=== PATIENT | female | born 1955 | race Caucasian/White ===

== ENCOUNTER 2018-08-07 02:10 | Observation (INO) | payer MEDICARE, SELFPAY ==
[2018-08-07] VITALS (20 sets, daily range): BP systolic 88–118; BP diastolic 40–63; PULSE 50–76; RESP 10–18; TEMP 36.1–37.5; O2SAT 90–98; BMI 31.2
--- NOTE | 2018-08-07 | PATH_ITS ---
[facility] Accession Number: [id number] . 01 Material submitted: . GALLBLADDER . 02 Diagnosis: Gallbladder, Cholecystectomy: Chronic cholecystitis with cholelithiasis. Negative for dysplasia or malignancy. I/08/11/2018 . 02 Electronically signed: . Rylan Skinner MD, PhD, Pathologist NPI- [id number] . 01 Gross description: . Received in formalin labeled Miguelina Haddad, gallbladder is an 11.0 x 3.5 x 3.0 cm gallbladder. The serosa is green-blue smooth and is grossly intact. Opening reveals a single orange-brown ovoid calculus, which is 3.5 x 1.5 x 1.5 cm. The mucosa is green and velvety. The wall measures up to 0.2 cm in thickness. Channel Sales Manager sections are submitted as A1 to include cystic duct at the margin. A1 is three pieces. ([id number]) /[facility] . 02 Pathologist provided ICD-10: K80.60 . 02 CPT . 492228 Performed at: 01 [facility] [address], [place], [place] [id number] MD Dusty Lopez MD Phone: [phone] Performed at: 02 [facility] [address] [place], [place] [id number] MD Edita Castaneda MD Phone: [phone]
--- NOTE | 2018-08-07 03:08 | ED.ABDPAIN ---
HPI - Abdominal Pain General Chief Complaint: Abdominal Pain Stated Complaint: Abdominal Pain Time Seen by Provider: 08/07/18 02:10 Source: patient and EMS Mode of arrival: EMS (airlift) Limitations: no limitations History of Present Illness HPI narrative: The patient is a 63-year-old female who presents with epigastric pain. She says started about 10 30 in the morning. It started going straight through to her back sometimes went up to her chest but she really denies any chest pain her palpitations or shortness of breath. He feels nauseated at times no vomiting. No fevers. The pain does seem to come and go. She had 25 mcg of fentanyl as prior to arrival which seems to have helped. MD complaint: abdominal pain Pain Consistency: intermittent Location: epigastric Severity: moderate Quality: sharp Radiation: back and chest Migration to: no migration Relieving factors: nothing Exacerbating factors: nothing Associated symptoms: nausea Related Data Allergies Allergy/AdvReac Type Severity Reaction Status Date / Time hydromorphone AdvReac Vomiting Verified 08/07/18 04:02 meperidine [From Demerol] AdvReac Vomiting Verified 08/07/18 04:02 phenobarbital AdvReac Seizure Verified 08/07/18 04:02 Review of Systems Review of Systems GENERAL: Denies chills, fatigue, malaise, fever, sweats, travel HEENT: Denies sinus pain, ear pain, sore throat, difficulty swallowing, neck pain RESPIRATORY: Denies dyspnea, cough, wheezing, hemoptysis, sputum. CARDIOVASCULAR: Denies chest pain, palpitations, orthopnea, edema GASTROINTESTINAL: HPI : Denies dysuria, frequency, incontinence, hematuria, urinary retention, flank pain. MUSCULOSKELETAL: Denies weakness, joint pain, or bony pain SKIN: No rash, no erythema, no pruritus NEUROLOGIC: Denies weakness, dizziness, headache, numbness, change in speech, confusion PSYCHIATRIC: No concerning psychosocial issues. 12 point review of systems is negative except for those stated above and HPI PFSH Medical History Pre-diabetes (Acute) Social History Smoking Status: Never smoker alcohol intake: never substance use type: does not use additional social history: House on [address], lives in [place]. Guardian for grandchild. Exam Initial Vital Signs Initial Vital Signs: Vital Signs Pulse Rate 62 08/07/18 04:04 Respiratory Rate 14 08/07/18 04:04 Blood Pressure 93/62 08/07/18 04:04 Pulse Oximetry 98 08/07/18 04:04 GENERAL: Well-appearing, well-nourished and in no acute distress. HEENT: Head atraumatic,EOMI, pupils reactive, face symmetric, CARDIOVASCULAR: Regular rate and rhythm without murmurs, rubs or gallops. RESPIRATORY: Breath sounds equal bilaterally, no wheezes rales or rhonchi. ABDOMEN: Soft, of the actual tenderness mild right upper quadrant pain no guarding rebound EXTREMITIES: Normal range of motion, no clubbing or edema. Neurovascularly intact NEUROLOGICAL: Alert and oriented x4.Normal gait and speech. Cranial nerves II through XII grossly intact. SKIN: Warm, dry, no laceration, no petechiae, no rashes or lesions. Course Vital Signs - 8 hr 08/07/18 04:04 Pulse Rate 62 Respiratory Rate 14 Blood Pressure [Left Arm] 93/62 Pulse Oximetry 98 [facility] - Abdominal Pain Lab Data Attestation: I reviewed the patient's lab results. WBC: 7.0, hemoglobin 14.6, hematocrit 42.4, platelets 223 CMP: Sodium 141, potassium 4.2, chloride 106, CO2 23, BUN 22, creatinine 0.7, glucose 119, calcium 9.5, total bilirubin 0.3, T 18, ALT 23, alk-phos 82, total protein 6.7, albumin 4.0, globulin 2.7, lipase 55, troponin less than 0.012, CK 56. Paper copy in chart Imaging Data US - abdomen: Radiologist's impression: fleet salesperson report: Large stone measuring 4 cm large in gallbladder neck. Positive sonographic Linda sign suspicious for acute cholecystitis. Wall thickness normal 4.2 mm, extra hepatic ducts normal ECG Data Attestation: I personally reviewed and interpreted this ECG as follows: Prior ECG tracings: not available for review Interpretation: Normal sinus rhythm rate [address] changes no T-wave inversions here interval 189 QRS 101 his QTC 432 no priors to compare [facility] Narrative Medical decision making narrative: Patient initially registered under Miguelina Yu date 06/01/1929. Due to [employer] difficulties unable to emerge charts. However her vitals remained stable she is afebrile. Initially patient thought she would go to [place] where she lives to have cholecystectomy no emergent reason at this time. However she later decided she should stay. I did discuss case with Dr. Beltran who graciously accepts patient. I have written holding orders. Discharge Plan Departure Patient Disposition: Admitted as Observation Clinical Impression: Cholelithiasis Instructions: DI for Gallstones, Cholecystectomy -- Laparoscopic Surgery Additional Instructions: *You have been diagnosed with cholelithiasis *What to do: Gallstones, you will need you're gallbladder removed. At this time it is not emergent. You have a very large gallstone stuck in the neck of your gallbladder. It is recommended that he this taken out soon. *Continue to take medications as directed *Follow up with your primary care provider in 2-3 days *Return to ER if you should have fever, increasing right upper quadrant pain, persistent vomiting or any new, worsening or concerning symptoms
--- NOTE | 2018-08-07 03:13 | ED_ITS ---
HPI - Abdominal Pain General Chief Complaint: Abdominal Pain Stated Complaint: Abdominal Pain Time Seen by Provider: 08/07/18 02:10 Source: patient and EMS Mode of arrival: EMS (airlift) Limitations: no limitations History of Present Illness HPI narrative: The patient is a 63-year-old female who presents with epigastric pain. She says started about 10 30 in the morning. It started going straight through to her back sometimes went up to her chest but she really denies any chest pain her palpitations or shortness of breath. He feels nauseated at times no vomiting. No fevers. The pain does seem to come and go. She had 25 mcg of fentanyl as prior to arrival which seems to have helped. MD complaint: abdominal pain Pain Consistency: intermittent Location: epigastric Severity: moderate Quality: sharp Radiation: back and chest Migration to: no migration Relieving factors: nothing Exacerbating factors: nothing Associated symptoms: nausea Related Data Allergies Allergy/AdvReac Type Severity Reaction Status Date / Time hydromorphone AdvReac Vomiting Verified 08/07/18 04:02 meperidine [From Demerol] AdvReac Vomiting Verified 08/07/18 04:02 phenobarbital AdvReac Seizure Verified 08/07/18 04:02 Review of Systems Review of Systems GENERAL: Denies chills, fatigue, malaise, fever, sweats, travel HEENT: Denies sinus pain, ear pain, sore throat, difficulty swallowing, neck pain RESPIRATORY: Denies dyspnea, cough, wheezing, hemoptysis, sputum. CARDIOVASCULAR: Denies chest pain, palpitations, orthopnea, edema GASTROINTESTINAL: HPI : Denies dysuria, frequency, incontinence, hematuria, urinary retention, flank pain. MUSCULOSKELETAL: Denies weakness, joint pain, or bony pain SKIN: No rash, no erythema, no pruritus NEUROLOGIC: Denies weakness, dizziness, headache, numbness, change in speech, confusion PSYCHIATRIC: No concerning psychosocial issues. 12 point review of systems is negative except for those stated above and HPI PFSH Medical History Pre-diabetes (Acute) Social History Smoking Status: Never smoker alcohol intake: never substance use type: does not use additional social history: House on [address], lives in [place]. Guardian for grandchild. Exam Initial Vital Signs Initial Vital Signs: Vital Signs Pulse Rate 62 08/07/18 04:04 Respiratory Rate 14 08/07/18 04:04 Blood Pressure 93/62 08/07/18 04:04 Pulse Oximetry 98 08/07/18 04:04 GENERAL: Well-appearing, well-nourished and in no acute distress. HEENT: Head atraumatic,EOMI, pupils reactive, face symmetric, CARDIOVASCULAR: Regular rate and rhythm without murmurs, rubs or gallops. RESPIRATORY: Breath sounds equal bilaterally, no wheezes rales or rhonchi. ABDOMEN: Soft, of the actual tenderness mild right upper quadrant pain no guarding rebound EXTREMITIES: Normal range of motion, no clubbing or edema. Neurovascularly intact NEUROLOGICAL: Alert and oriented x4.Normal gait and speech. Cranial nerves II through XII grossly intact. SKIN: Warm, dry, no laceration, no petechiae, no rashes or lesions. Course Vital Signs - 8 hr 08/07/18 04:04 Pulse Rate 62 Respiratory Rate 14 Blood Pressure [Left Arm] 93/62 Pulse Oximetry 98 [facility] - Abdominal Pain Lab Data Attestation: I reviewed the patient's lab results. WBC: 7.0, hemoglobin 14.6, hematocrit 42.4, platelets 223 CMP: Sodium 141, potassium 4.2, chloride 106, CO2 23, BUN 22, creatinine 0.7, glucose 119, calcium 9.5, total bilirubin 0.3, T 18, ALT 23, alk-phos 82, total protein 6.7, albumin 4.0, globulin 2.7, lipase 55, troponin less than 0.012, CK 56. 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 Positive sonographic Linda sign suspicious for acute cholecystitis. Wall thickness normal 4.2 mm, extra hepatic ducts normal ECG Data Attestation: I personally reviewed and interpreted this ECG as follows: Prior ECG tracings: not available for review Interpretation: Normal sinus rhythm rate [address] changes no T-wave inversions here interval 189 QRS 101 his QTC 432 no priors to compare [facility] Narrative Medical decision making narrative: Patient initially registered under Miguelina Yu date 06/01/1929. Due to [facility] difficulties unable to emerge charts. However her vitals remained stable she is afebrile. Initially patient thought she would go to [place] where she lives to have cholecystectomy no emergent reason at this time. However she later decided she should stay. I did discuss case with Dr. Beltran who graciously accepts patient. I have written holding orders. Discharge Plan Departure Patient Disposition: Admitted as Observation Clinical Impression: Cholelithiasis Instructions: DI for Gallstones, Cholecystectomy -- Laparoscopic Surgery Additional Instructions: *You have been diagnosed with cholelithiasis *What to do: Gallstones, you will need you're gallbladder removed. At this time it is not emergent. You have a very large gallstone stuck in the neck of your gallbladder. It is recommended that he this taken out soon. *Continue to take medications as directed *Follow up with your primary care provider in 2-3 days *Return to ER if you should have fever, increasing right upper quadrant pain, persistent vomiting or any new, worsening or concerning symptoms
[2018-08-07] MEDS: PANTOPRAZOLE 40 MG VIAL IV (04:31)
[2018-08-07] MEDS: SODIUM CHLORIDE 0.9% 1,000 ML 125 ML IV (05:00)
--- NOTE | 2018-08-07 06:16 | PC.NURSE ---
[employer] Note: 0440: Admitted to acute care room 226 from ER via stretcher. Pt was able to walk from the stretcher to her bed. Vital signs stable. IV in place in rt AC. Pt states her pain is under control. Pt is aware that she is not to eat or drink for now, according to the doctor's orders.
--- NOTE | 2018-08-07 09:13 | P.HP_ITS ---
History of Present Illness Date Patient Seen: 08/07/18 Time Patient Seen: 09:11 Chief complaint: Abdominal Pain Narrative: The patient is a woman who had pains yesterday beginning up under her right breast and gradually shifted down to her right upper quadrant epigastric area. It was quite intense and she has never had pain like this before. She came into the emergency room room on [address] and had labs etc done. Ultrasound was performed in our ER and she was found to have a large gallstone impacted in her infundibulum. She is from [place] and initially entertained the thought of going there however decided to stay here for her cholecystectomy. She has had no nausea vomiting that she has been anorexic. She has not passed any blood per rectum. Patient History Medical History Pre-diabetes (Acute) Surgical History S/P JULIA-BSO (Resolved) S/P operative procedure on shoulder (Resolved) Status post right knee replacement (Resolved) Family & Social History Social History: household members children Prior Living Arrangements House Safety & Behavioral: Feels Safe in Current Yes Environment Been Physically Hurt or No Threatened By a Person Suicidal Ideation Description None Suicide Plan Description No Plan Tobacco & Substance use: Smoking Status Never smoker alcohol intake frequency a few times a month Substance Use Type does not use Meds Allergies Allergy/AdvReac Type Severity Reaction Status Date / Time hydromorphone AdvReac Vomiting Verified 08/07/18 04:02 meperidine [From Demerol] AdvReac Vomiting Verified 08/07/18 04:02 phenobarbital AdvReac Seizure Verified 08/07/18 04:02 Review of Systems Review of Systems Patient denies double vision pain arise earache sore throat trouble swallowing. No tooth aches. No cough cold or asthma. No chest pain or heart problems. No black or bloody bowel movements. Last colonoscopy was in June. She had a polyp removed. 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 Is not on any medication for it. Does have incontinence of urine. No kidney stones or blood in her urine. Does report umbilical hernia. No psychiatric issues like anxiety or depression. Exam Vital Signs (past 8 hours): - 08/07/18 04:04 08/07/18 04:53 Temperature 97.8 F Pulse Rate 62 50 L Respiratory Rate 14 16 Blood Pressure 118/63 Blood Pressure [Left Arm] 93/62 Pulse Oximetry 98 98 Narrative Exam Narrative: Vital signs noted. Eyes are nonicteric pupils equal round reactive to like conjunctivae are pink is without lesion. Nasal septum midline. No polyps. Oral mucosa is dry no open lesions. No splits in the lips. Teeth are intact. There are no palpable nodes in the neck or supraclavicular areas. Trachea is midline and mobile. Thyroid is not enlarged. There are no masses neck or thyroid. Lungs are clear to auscultation without rales or rhonchi. Equal percussion. Heart regular rate and rhythm without murmur gallop. No bruit in the neck. She has 2+ dorsalis pedis pulses. Patient has protuberant abdomen. There are no palpable masses. Liver and spleen are not enlarged. There is no tenderness at this time. Did not appreciate her umbilical hernia. The patient is alert and oriented x3. Speech rate and content are appropriate. Affect is appropriate. Assessment & Plan Plan: Assessment/Plan Narrative: The patient is a woman with symptomatic gallbladder disease. She is ultrasound that shows a stone impacted in her gallbladder neck. Cristobal was given the option of having this done as an outpatient or coming in having it done now. She was uncomfortable enough and her situation such that she would prefer to have it done even though she lives in [place]. I have discussed the operation with her. Risks of bleeding, infection, the possibility of doing cholangiogram or other procedures, injury to internal organs or ducts which would require major operation bile leakage and hernia were all discussed. She appears to understand and wishes to proceed. We talked about her limitations postoperatively and also talked about possible effects of removing her gallbladder.
--- NOTE | 2018-08-07 09:13 | CM.DANOTE ---
DCP: Case received, EMR reviewed and met with patient. Introduced self and role. DCP template completed with information currently available. Patient is a 63 year old female who admitted early this am to the care of the hospitalist team. PCP: Dr. Truong. Payer: confirmed: [employer]. Patient came to hospital via air transport from [place], due to severe epigastric pain, secondary to gallstone. Patient will be having Cholecystectomy-Lap surgery today. Met with patient. Alert and oriented, lives on [address], and she also has a home on [address]. Patient also takes care of her 5 year old grandson who is currently with the . P: DCP to continue to follow. Goal is for patient to return home when stable. Elizabeth Lugo RN/A Operator
[2018-08-07] MEDS: ENOXAPARIN 40 MG/0.4 ML SYRINGE SUBCUT (09:19)
--- NOTE | 2018-08-07 09:29 | PM.PREOP ---
Pre-operative Note Interval Note Pre-op Check: Yes History & Physical exam performed today by Physician Changes: No
[2018-08-07] MEDS: MORPHINE 2 MG/ML INJ IV (09:34)
--- NOTE | 2018-08-07 11:55 | PC.NURSE ---
Patient requested small dose of pain medications this morning for her headache, she felt like she was getting a migraine. 1mg morphine given, and patient allowed to sleep. 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 Up to bathroom to void, steady on feet. Sent down to preop with Ghassan FAIRCHILD for surgery, family at bedside.
[2018-08-07] MEDS: LACTATED RINGERS 1,000 ML 42 ML IV ×2 (12:00→14:34)
[2018-08-07] MEDS: CEFAZOLIN 2 GM/100 ML FROZ.PIGGY IV (13:15)
--- NOTE | 2018-08-07 13:54 | SUR.OPER ---
Supine on padded OR bed, head on pillow, safety belt at thigh, left arm padded and tucked at side. Right arm secured on padded arm oard <90 degrees abduction. Legs uncrossed. Padded footboard in place. Tape over blanket to secure lower legs.
[2018-08-07] MEDS: BUPIVACAINE 0.5% (PF) VIAL 30 ML INJ (14:00)
[2018-08-07] MEDS: ACETAMINOPHEN IV 1,000 MG/100 ML VIAL 400 MG IV (14:29)
--- NOTE | 2018-08-07 15:03 | PM.OP.1 ---
Operative Date/Time/Diagnoses Date of procedure: 08/07/18 Time of procedure: 15:00 Pre-op diagnosis: Cholelithiasis cholecystitis Post-op diagnosis: same (Cholelithiasis chronic cholecystitis) Procedure & Clinicians Procedure: Laparoscopic cholecystectomy Same procedure as scheduled: Yes Indications: Symptomatic gallbladder disease Surgeon: Donal Beltran Click Yes if Unassisted: Yes Anesthesia Type: General Operative Notes Findings: Thickened gallbladder wall off. Very large stone in the outflow of the gallbladder. Closure Type: primary Specimen(s): other (Gallbladder and contents) Implants & Drains: None Estimated Blood Loss (mL): 20 Blood products transfused: none Procedure in detail: The patient was placed supine on the operating room table and underwent general endotracheal anesthesia. There prepped and draped in the usual fashion. Local anesthetic was infiltrated beneath the umbilicus and an incision made in the infraumbilical fold. It was carried down to the level of the peritoneum which was opened under direct vision. Stay sutures of 0 Polysorb were placed in the fascia. An Sharifa cannula was inserted and the abdomen was insufflated. The patient was repositioned and local anesthetic was infiltrated again beneath the right costal margin and 3 small 5 mm ports were inserted. The gallbladder was identified and grasped and elevated. The omentum was densely adherent to the surface overlying a very large stone. This was taken down with sharp dissection and cautery. There was no intestine in the adhesions were treated this way. He end of the gallbladder is identified and dissection begun here. A ductal structure singular nature going directed gallbladder was identified and from surrounding structures. Its junction with the common duct bile duct was noted. Three clips were placed across it and it was divided leaving 2 in the patient. There were believed to be several small vascular structures and then the main artery going to the gallbladder. Clips were placed on each of these and they were divided leaving 2 in the patient. The gallbladder was then dissected from its bed and liver using cautery. The detached and placed in a bag and removed without difficulty. The stay sutures were tied an additional 2 0 PDS was placed between these to completely close the fascia. The subcu was reapproximated with interrupted 4 0 Vicryl. The skin was closed in all areas after irrigating with a 4 0 Vicryl subcuticular stitch and exofin was placed on the skin surface. The patient was awakened and extubated and taken to recovery area in good condition. Complications: none Condition: stable Disposition: PACU
--- NOTE | 2018-08-07 15:10 | SUR.PHASEI ---
History of JESÚS without use of CPAP noted with some variable sats seen. Briefly on O2 but quickly off. Tends to recover spontaneously. C/O sore throat several times. Told will not be using opiod medication for this but cool water and/or lozenges.
[2018-08-07] MEDS: OXYCODONE IR 5 MG TABLET PO (15:46)
--- NOTE | 2018-08-07 15:50 | SUR.PHASEI ---
Watched in PACU for resp compromise due to JESÚS history. Some variation was seen but it was quite transient with spontaneous recovery. VSS in comparison to Preop. Pain controlled with throat and unbilicus wound with some discomfort and treated. Further delay in PACU to floor due to shift change.
[2018-08-07] MEDS: SCOPOLAMINE 1 PATCH TOP (17:32)
[2018-08-07] MEDS: KETOROLAC 30 MG/ML VIAL IV ×2 (17:33→22:53)
--- NOTE | 2018-08-07 19:23 | PC.NURSE ---
Addendum entered by Marilyn Zavala R.N. 08/07/18 23:01: Pt c/o headache pain. Administered toradol slightly early to manage this complaint. Ice to head. Inquired if pt is coffee drinker and pt replies, yes. Offered tea with caffeine and pt declined. Original Note: Addendum entered by Marilyn Zavala R.N. 08/07/18 20:22: Up to bathroom to void without any complaints. Missed measuring device with void. Admits to headache and abdominal pain 5/10. Administered percocet with clear liquids. Original Note: Pt to room 226 from PACU awake and alert @ 1600. Supportive family present. Taking sips water without nausea. Scopolamine patch placed as per order behind right ear. Bowel tones quiet. Abdominal stab wounds x 4 with surgical wound glue intact. No drainage. Provided with ice pack to abdomen. Toradol for pain 5/10. Refuses narcotics at this time. C/o sore throat and is chewing gum. BL calf scd's in place. Denies need to void.
[2018-08-07] MEDS: OXYCODONE/ACETAMINOPHEN 5/325 TABLET 2 TAB PO (20:17)
[2018-08-07] MEDS: SODIUM CHLORIDE 0.9% FLUSH 10 ML IV ×2 (20:17→22:54)
[2018-08-08] VITALS: BP 101/54; PULSE 69; RESP 16; TEMP 36.7; O2SAT 93
[2018-08-08 05:00] VITALS: BP 91/55; PULSE 49; RESP 16; TEMP 36.9; O2SAT 91
[2018-08-08 08:00] VITALS: BP 89/53; PULSE 53; RESP 16; TEMP 36.6; O2SAT 92
[2018-08-08] MEDS: METFORMIN HCL 500 MG TABLET PO (09:35)
[2018-08-08] MEDS: SODIUM CHLORIDE 0.9% FLUSH 10 ML IV (09:35)
[2018-08-08] MEDS: KETOROLAC 30 MG/ML VIAL IV (09:38)
[2018-08-08] MEDS: LACTATED RINGERS 500 ML 1000 ML IV (09:53)
[2018-08-08] MEDS: ENOXAPARIN 40 MG/0.4 ML SYRINGE SUBCUT (09:53)
--- NOTE | 2018-08-08 10:41 | PM.DS.1 ---
History of Present Illness Chief complaint: Abdominal Pain Narrative: The patient is a woman who had pains yesterday beginning up under her right breast and gradually shifted down to her right upper quadrant epigastric area. It was quite intense and she has never had pain like this before. She came into the emergency room room on and had labs etc done. Ultrasound was performed in our ER and she was found to have a large gallstone impacted in her infundibulum. She is from [place] and initially entertained the thought of going there however decided to stay here for her cholecystectomy. She has had no nausea vomiting that she has been anorexic. She has not passed any blood per rectum. Discharge Providers Date of admission: 08/07/18 04:45 Consults: 08/07/18 04:54 Consult to General Surgery Routine Comment: Consulting Provider: Donal Beltran Reason for consultation: Cholelithiasis Has provider been notified: Yes 08/07/18 12:12 Consult to Respiratory Therapy Evaluate & Treat Comment: Physician Instructions: Evaluate and treat Discharge provider: Donal Beltran MD Discharge Date: 08/08/18 Summary Discharge Diagnosis: Chronic cholecystitis with cholelithiasis. Probable obstruction of the cystic duct based on intraoperative findings. Early type 2 diabetes chronic Exam Vital Signs (past 8 hours): - 08/08/18 05:00 08/08/18 08:00 Temperature 98.4 F 97.8 F Pulse Rate 49 L 53 L Respiratory Rate 16 16 Blood Pressure 91/55 L 89/53 L Pulse Oximetry 91 92 Oxygen Delivery Method Room Air Oxygen Flow Rate 2 Narrative Exam Narrative: Operative no apparent distress. Lungs are clear to auscultation with good effort. Heart regular rate and rhythm without murmur gallop. Abdomen is soft protuberant nontender. No cellulitis. Minor bruising as expected around the port sites. Discharge Plan Discharge Plan Patient Disposition: Home Discharge Med Rec/Prescriptions Prescriptions: New ondansetron HCl [Zofran] 8 mg tablet 8 mg PO BID-TID PRN (Reason: nausea and vomiting) Qty: 10 RF: 0 oxycodone 5 mg tablet 5 mg PO Q4-6H PRN (Reason: painful procedure) Qty: 20 RF: 0 Continue metformin 500 mg Tablet 500 mg PO QAM RF: 0 Follow up/Referrals: Donal Beltran MD [Physician] - (Call our office on Wednesday for an appointment to see me in about a week to 10 days. If you prefer to follow up closer to home you can do so with your family physician. You must follow up with someone to make sure no subtle problems are developing. If you have any problems and need to reach a doctor call our office. If it is after hours listen to the message and at the end you will be connected to the paging milling machine set up operator) Provider Discharge Instructions Diet: Diet as Tolerated and Carb-consistent/Diabetic Skin/Wound/Dressing Care Report to your healthcare provider any signs of infection, such as:: chills, fever, night sweats, increased pain, unusual drainage and unusual redness Dressing: You may shower. Avoid tub or pool for about 2 weeks. Visit Report/Discharge Packet Instructions: DI for Gallstones, Cholecystectomy -- Laparoscopic Surgery, Ondansetron, Oxycodone Visit Report Forms: Stroke Signs & Symptoms Discharge Data Attending Provider: Donal Beltran Admit Date/Time: 08/07/18 04:45
--- NOTE | 2018-08-08 16:12 | PC.NURSE ---
1400. Patient up in room, denies dizziness, steady on feet. Tolerated lunch without difficulty, ready to discharge to home with her son. IV removed intact. Discharge instructions and home care handout reviewed with patient. Patient states understanding and has no further questions or concerns. Escorted out by wheelchair with all belongings. Patient will call to schedule a follow up appointment to be seen in 10 days.
== END 2018-08-08 14:20 | disposition home or self-care (01) ==
LOC: ED 04:19 → AC 04:45
PROVIDERS: Admitting Provider Specialist; Emergency Provider Emergency Medicine; Visit Provider Specialist
PROC: 0FT44ZZ Resection of Gallbladder, Percutaneous Endoscopic Approach (ICD-10-PCS; CPT 47562; principal; 2018-08-07 13:00)
DX: K80.10 Calculus of gallbladder with chronic cholecystitis without obstruction (principal); R10.13 Epigastric pain
CPT/HCPCS: 47562; 36415; 76700; 80053; 82550; 82962; 83690; 84484; 85025; 88304; 93005; 96374; 99282; 99285; G0378; C9113; J0131; J0330; J0690; J1100; J1650; J1885; J2250; J2270; J2405; J2704; J3010

== ENCOUNTER 2021-07-13 14:48 | Emergency (ER) | payer MEDICARE, SELFPAY ==
[2018-08-07 04:57] VITALS: BMI 31.2
[2021-07-13 15:02] VITALS: BP 135/76; PULSE 76; RESP 18; TEMP 36.4; O2SAT 97
--- NOTE | 2021-07-13 15:05 | DI.RAD.S_ITS ---
PROCEDURE: XR ACUTE ABDOMEN SERIES INDICATIONS: abd pain/constipation/nausea TECHNIQUE: One view chest and two views of the abdomen were acquired. COMPARISON: None. FINDINGS: Surgical changes and devices: Cholecystectomy clips are seen. Chest: Lungs are clear. Heart size is normal. No pleural effusions. No pneumoperitoneum. Abdomen: Bowel gas pattern is normal. Of stool seen within the colon. No suspicious calcifications. Visualized solid organ contours appear normal. Bones: No suspicious bony lesions. S shaped scoliosis is seen. Age-appropriate bony degenerative changes are seen. IMPRESSION: There is a moderate amount of stool seen within the colon, which is consistent with the given history of constipation. Postoperative and degenerative changes are seen. S shaped scoliosis. Dictated by: Ousmane Ramirez M.D. on 07/13/2021 at 14:33 Approved by: Ousmane Ramirez M.D. on 07/13/2021 at 14:33
[2021-07-13 15:35] LABS: Add Manual Diff / Slide Review NO; Basophils Absolute Auto 100 /uL (0-100); Basophils Percent Auto 1.3 % (0-2); Eosinophils Absolute Auto 100 /uL (0-450); Eosinophils Percent Auto 1.1 % (2-4); Hematocrit 46.6 % (36-46); Hemoglobin 16.1 g/dL (12.0-16.0); Lymphocytes Absolute Auto 2800 /uL (1100-4500); Lymphocytes Percent Auto 28.3 % (25-40); Mean Corpuscular HGB Conc 34.6 % (30-36); Mean Corpuscular Hemoglobin 31.4 PG (26-34); Monocytes Absolute Auto 700 /uL (0-900); Monocytes Percent Auto 7.3 % (3-14); Neutrophils Absolute Auto 6100 /uL (1500-7000); Platelet Count 279 X10^3/uL (150-400); Red Blood Cell Count 5.12 X10^6/uL (4.0-5.2); Red Cell Distribution Width 12.8 % (11.6-14.8); White Blood Cell Count 9.8 X10^3/uL (4.5-11.0)
[2021-07-13 15:44] LABS: Alanine Aminotransferase 19 IU/L (<35); Albumin 4.7 g/dL (3.5-5.0); Albumin Globulin Ratio 1.4 (1.0-2.8); Alkaline Phosphatase 72 U/L (38-126); Aspartate Aminotransferase 21 IU/L (14-36); BUN Creatinine Ratio 22.9 (6-22); Bilirubin Total 0.8 mg/dL (0.2-1.3); Blood Urea Nitrogen 16 mg/dL (7-17); Carbon Dioxide 25 mmol/L (22-32); Chloride 105 mmol/L (98-107); Estimated Glomerular Filt Rate > 60.0 mL/min (>60); Globulin 3.3 g/dL (1.7-4.1); Glucose 105 mg/dL (80-110); HEMOLYSIS < 15 (0-50); Lipase 52 U/L (23-300); Sodium 140 mmol/L (137-145)
[2021-07-13 16:11] LABS: Ictotest Urine Negative (Negative)
--- NOTE | 2021-07-13 17:57 | DI.CT.S_ITS ---
PROCEDURE: CT ABDOMEN PELVIS W CON INDICATIONS: peribumbilical pain TECHNIQUE: After the administration of intravenous contrast, axial sections acquired from the lung bases to the pubic symphysis. Coronal and sagittal reformats were performed. For radiation dose reduction, the following was used: automated exposure control, adjustment of mA and/or kV according to patient size. COMPARISON: None. FINDINGS: ABDOMEN: Lung bases: No acute findings. Heart: No pericardial effusion. Normal in size. Liver: Hepatic steatosis. Gallbladder: Surgically absent. Bile ducts: Normal. Pancreas: Normal. Spleen: Normal. Adrenals: Normal. Kidneys and Ureters: Simple appearing right renal cyst measuring 4 cm. No hydronephrosis. Ureters appear decompressed. Simple appearing left renal cyst measuring 3 cm. Stomach and duodenum: Trace hiatal hernia. Bowel: Moderate stool. No evidence of bowel obstruction. Colonic diverticulosis is seen without evidence of acute complication. Normal appendix. Other: No free fluid or air. Abdominal nodes: Normal. Aorta and IVC: Normal in size. Ventral wall: 2 cm fat containing periumbilical hernia. PELVIS: Bladder and reproductive: Unremarkable. Inguinal region: No hernia. Pelvic nodes: Normal. Bones: No suspicious bony lesions. No vertebral body compression fractures. Diffuse spondylytic changes and facet disease. IMPRESSION: 2 cm fat containing periumbilical hernia. Normal appendix Hepatic steatosis Additional chronic and incidental findings as above. Dictated by: Nba Stinson M.D. on 07/13/2021 at 18:45 Approved by: Nba Stinson M.D. on 07/13/2021 at 18:49
--- NOTE | 2021-07-13 17:58 | ED.ABDPAIN ---
HPI - Abdominal Pain General Chief Complaint: Abdominal Pain Stated Complaint: Digestive Problems, Pain Time Seen by Provider: 07/13/21 17:51 Source: patient Mode of arrival: Ambulatory History of Present Illness HPI narrative: Patient is a 65-year-old female history of cholecystectomy in 2018, presenting today with. Umbilical pain. She says that she has had off and on for a while however last night it lasted for more than 12 hours requiring [place] to [place] she was instructed to be re-evaluated today. She now is having a mild headache she says she has not eaten much but the pain has overall improved. She denies any fever chills nausea or vomiting. She says hurts every time she eats. She actually has been constipated but did have a small bowel movement this morning. She denies any chest pain no shortness of breath. Related Data Home Medications Medication Instructions Recorded Confirmed metformin 500 mg tablet 500 mg PO QAM 08/08/18 08/08/18 Previous Rx's Medication Instructions Recorded ondansetron HCl 8 mg tablet 8 mg PO BID-TID PRN #10 tab 08/08/18 (Zofran) oxycodone 5 mg tablet 5 mg PO Q4-6H PRN #20 tab 08/08/18 Allergies Allergy/AdvReac Type Severity Reaction Status Date / Time hydromorphone AdvReac Vomiting Verified 08/07/18 04:02 meperidine [From Demerol] AdvReac Vomiting Verified 08/07/18 04:02 phenobarbital AdvReac Seizure Verified 08/07/18 04:02 Review of Systems Review of Systems Narrative: GENERAL: Denies chills, fatigue, malaise, fever, sweats, travel HEENT: Denies sinus pain, ear pain, sore throat, difficulty swallowing, neck pain RESPIRATORY: Denies dyspnea, cough, wheezing, hemoptysis, sputum. CARDIOVASCULAR: Denies chest pain, palpitations, orthopnea, edema GASTROINTESTINAL: See HPI : Denies dysuria, frequency, incontinence, hematuria, urinary retention, flank pain. MUSCULOSKELETAL: Denies weakness, joint pain, or bony pain SKIN: No rash, no erythema, no pruritus NEUROLOGIC: Denies weakness, dizziness, headache, numbness, change in speech, confusion PSYCHIATRIC: No concerning psychosocial issues. 12 point review of systems is negative except for those stated above and HPI Patient History Medical History (Updated 07/13/21 @ 19:13 by Radha Álvarez DO) Pre-diabetes Surgical History (Updated 08/07/18 @ 09:18 by Donal Beltran MD) S/P operative procedure on shoulder S/P JULIA-BSO Status post right knee replacement Social History (Updated 08/07/18 @ 04:11 by Radha Álvarez DO) household members: children Smoking Status: Never smoker alcohol intake: never substance use type: does not use additional social history: House [place] [address], lives in [place]. Guardian for grandchild. Smoking Status: Never smoker alcohol intake frequency: a few times a month Substance Use Type: does not use Exam Initial Vital Signs Initial Vital Signs: Vital Signs Temperature 97.6 F 07/13/21 15:02 Pulse Rate 76 07/13/21 15:02 Respiratory Rate 18 07/13/21 15:02 Blood Pressure 135/76 07/13/21 15:02 Pulse Oximetry 97 07/13/21 15:02 GENERAL: Alert well-appearing 65-year-old and in no acute distress. HEENT: Head atraumatic,EOMI, pupils reactive, face symmetric, moist mucous membranes CARDIOVASCULAR: Regular rate and rhythm without murmurs, rubs or gallops. RESPIRATORY: Breath sounds equal bilaterally, no wheezes rales or rhonchi. ABDOMEN: Soft, periumbilical pain no guarding no rebound epigastric pain no right upper quadrant pain : No CVA tenderness EXTREMITIES: Normal range of motion, no clubbing or edema. Neurovascularly intact NEUROLOGICAL: Alert and oriented x4.Normal gait and speech. SKIN: Warm, dry, no laceration, no petechiae, no rashes or lesions. Course Orders Ordered: ED Orders 07/13/21 17:52 EKG-12 Lead Stat 07/13/21 17:57 CT abdomen pelvis w con Stat Discontinued Medications Acetaminophen (Acetaminophen 325 Mg Tablet) 975 mg PO NOW ONE Stop: 07/13/21 17:58 Last Admin: 07/13/21 18:32 Dose: 975 mg Documented by: SARA Vital Signs Vital signs: Vital Signs - 8 hr 07/13/21 19:39 Pulse Rate 78 Respiratory Rate 16 Blood Pressure 135/73 Pulse Oximetry 99 MDM - Abdominal Pain Lab Data Result diagrams: 07/13/21 15:15 11/28/21 15:15 Labs: Lab Results 07/13/21 07/13/21 07/13/21 Range/Units 15:15 15:15 15:47 WBC 9.8 (4.5-11.0) X10^3/uL RBC 5.12 (4.0-5.2) X10^6/uL Hgb 16.1 H (12.0-16.0) g/dL Hct 46.6 H (36-46) % MCV 91.0 (80-100) fL MCH 31.4 (26-34) PG MCHC 34.6 (30-36) % RDW 12.8 (11.6-14.8) % Plt Count 279 (150-400) X10^3/uL Neut % (Auto) 62.0 (50-75) % Lymph % (Auto) 28.3 (25-40) % [place] % (Auto) 7.3 (3-14) % Eos % (Auto) 1.1 L (2-4) % Baso % (Auto) 1.3 (0-2) % Neut # (Auto) 6100 (8873-5492) /uL Lymph # (Auto) 2800 (6205-2593) /uL [place] # (Auto) 700 (0-900) /uL Eos # (Auto) 100 (0-450) /uL Baso # (Auto) 100 (0-100) /uL Sodium 140 (137-145) mmol/L Potassium 4.0 (3.4-5.1) mmol/L Chloride 105 (98-107) mmol/L Carbon Dioxide 25 (22-32) mmol/L BUN 16 (7-17) mg/dL Creatinine 0.70 (0.52-1.04) mg/dL Estimated GFR > 60.0 (>60) mL/min BUN/Creatinine Ratio 22.9 H (6-22) Glucose 105 (80-110) mg/dL Calcium 10.0 (8.4-10.2) mg/dL Total Bilirubin 0.8 (0.2-1.3) mg/dL AST 21 (14-36) IU/L ALT 19 (<35) IU/L Alkaline Phosphatase 72 (38-126) U/L Total Protein 8.0 (6.3-8.2) g/dL Albumin 4.7 (3.5-5.0) g/dL Globulin 3.3 (1.7-4.1) g/dL Albumin/Globulin Ratio 1.4 (1.0-2.8) Lipase 52 (23-300) U/L Ur Bilirubin Confirm Negative (Negative) Point of care testing: Urine Dip Bedside Urine Glucose Negative Bedside Urine Bilirubin - Negative Bedside Urine Ketone - Negative Urine Specific [place] 1.025 Bedside Urine Occult Blood - Negative Bedside Urine pH 6.0 Bedside Urine Protein - Negative Bedside Urine Urobilinogen - Negative Bedside Urine Nitrite - Negative Bedside Urine Leukocytes - Negative Esterase Imaging Data Abdominal x-ray: Radiologist's Impression: PROCEDURE:? XR ACUTE ABDOMEN SERIES ? INDICATIONS:? abd pain/constipation/nausea ? TECHNIQUE:? One view chest and two views of the abdomen were acquired.? ? COMPARISON:? None. ? FINDINGS:? ? Surgical changes and devices:? Cholecystectomy clips are seen.? ? Chest:? Lungs are clear.? Heart size is normal.? No pleural effusions.? No pneumoperitoneum.? ? Abdomen:? Bowel gas pattern is normal.? Of stool seen within the colon.? No suspicious calcifications.? Visualized solid organ contours appear normal.? ? Bones:? No suspicious bony lesions.? S shaped scoliosis is seen.? Age-appropriate bony degenerative changes are seen.? ? ? IMPRESSION:? There is a moderate amount of stool seen within the colon, which is consistent with the given history of constipation.? ? Postoperative and degenerative changes are seen.? ? S shaped scoliosis.? ? Dictated by: Ousmane Ramirez M.D. on 07/13/2021 at 14:33? CT scan - abdomen/pelvis: Radiologist's Impression: PROCEDURE:? CT ABDOMEN PELVIS W CON ? INDICATIONS:? peribumbilical pain ? TECHNIQUE:? After the administration of intravenous contrast, axial sections acquired from the lung bases to the pubic symphysis.? Coronal and sagittal reformats were performed.? For radiation dose reduction, the following was used:? automated exposure control, adjustment of mA and/or kV according to patient size.? ? COMPARISON:? None. ? FINDINGS: ABDOMEN:? Lung bases:? No acute findings. Heart:? No pericardial effusion. Normal in size.? ? Liver:? Hepatic steatosis. Gallbladder:? Surgically absent.? Bile ducts: Normal. Pancreas: Normal.? Spleen: Normal.? Adrenals: Normal. Kidneys and Ureters:? Simple appearing right renal cyst measuring 4 cm.? No hydronephrosis.? Ureters appear decompressed.? Simple appearing left renal cyst measuring 3 cm. Stomach and duodenum:? Trace hiatal hernia. Bowel:? Moderate stool.? No evidence of bowel obstruction. Colonic diverticulosis is seen without evidence of acute complication.? Normal appendix. Other:? No free fluid or air.? Abdominal nodes:? Normal. Aorta and IVC: Normal in size.? ? Ventral wall:? 2 cm fat containing periumbilical hernia. ? PELVIS:? ? Bladder and reproductive: Unremarkable.? Inguinal region: No hernia.? Pelvic nodes: Normal.? ? Bones:? No suspicious bony lesions.? No vertebral body compression fractures. Diffuse spondylytic changes and facet disease. ? ? IMPRESSION:? ? 2 cm fat containing periumbilical hernia. ? Normal appendix ? Hepatic steatosis ? Additional chronic and incidental findings as above.? Dictated by: Nba Stinson M.D. on 07/13/2021 at 18:45 ? ? ECG Data Interpretation: Normal sinus rhythm rate 72 NC interval 180 QRS can 6 QTC 416 MDM Narrative Medical decision making narrative: Patient overall appears well she is no longer having pain although she did have pain. Blood work is reassuring. She would benefit from outpatient follow-up with surgery for periumbilical fat hernia. However no evidence of strangulation no continuation of pain and is not emergent. Discussed this with patient. If she should have worsening or persistent pain then to return back to the emergency department. At this time she understands and agrees. Discharge Plan Departure Patient Disposition: Home Clinical Impression: Hernia, umbilical Instructions: Umbilical Hernia-Child Activity Restrictions/Additional Instructions: *You have been diagnosed with umbilical hernia *What to do: You have a fat containing umbilical hernia. If here pain is controlled at this time you can follow-up with General surgery to have this repaired. *Continue to take medications as directed Tylenol 650 mg every 4-6 hours if needed for [id number] pain *Follow up with your primary care provider in 2-3 days Call surgery tomorrow to schedule follow-up appointment *Return to ER if you should have increasing pain, persistent pain, nausea, vomiting, or any new, worsening or concerning symptoms Prescriptions: No Action metformin 500 mg Tablet 500 mg PO QAM 0RF ondansetron HCl [Zofran] 8 mg tablet 8 mg PO BID-TID PRN (Reason: nausea and vomiting) Qty: 10 0RF oxycodone 5 mg tablet 5 mg PO Q4-6H PRN (Reason: painful procedure) Qty: 20 0RF Referrals: [facility] [Provider Group] Alexsandra Linda ARNP [Primary Care Provider] -
[2021-07-13] MEDS: ACETAMINOPHEN 325 MG TABLET 975 MG PO (18:32)
[2021-07-13 19:39] VITALS: BP 135/73; PULSE 78; RESP 16; O2SAT 99
== END 2021-07-13 19:39 | disposition home or self-care (01) ==
PROVIDERS: Emergency Medicine; Emergency Provider Emergency Medicine; PCP Nurse Practitioner Family
DX: K42.9 Umbilical hernia without obstruction or gangrene (principal)
CPT/HCPCS: 74022; 74177; 80053; 81003; 83690; 85025; 93005; 99284; Q9967

== ENCOUNTER 2021-07-21 10:45 | Day surgery (SDC) | payer MEDICARE, SELFPAY ==
[2021-07-14 10:15] VITALS: BMI 31.2
[2021-07-17 14:22] VITALS: BMI 29.5
[2021-07-21] VITALS (7 sets, daily range): BP systolic 92–125; BP diastolic 58–75; PULSE 66–71; RESP 10–16; TEMP 36.3–36.7; O2SAT 93–96; BMI 29.5
[2021-07-21] MEDS: ACETAMINOPHEN 325 MG TABLET 975 MG PO (12:04)
[2021-07-21] MEDS: GABAPENTIN 300 MG CAPSULE PO (12:05)
[2021-07-21] MEDS: LACTATED RINGERS 1,000 ML 42 ML IV (12:05)
--- NOTE | 2021-07-21 12:42 | PM.PREOP ---
Pre-operative Note Interval Note History & Physical reviewed/Exam performed by Physician: Yes Changes to H&P: No
[2021-07-21] MEDS: CEFAZOLIN 2 GM/20 ML SYRINGE IV (13:08)
--- NOTE | 2021-07-21 13:18 | SUR.OPER ---
Supine on padded OR bed, head on pillow, arms secured on padded arm boards at <90 degrees abduction, legs uncrossed, safety belt at thigh, tape over blanket over lower legs, gel pad under heels.
[2021-07-21] MEDS: BUPIVACAINE 0.25% (PF) VIAL 30 ML INJ (13:31)
--- NOTE | 2021-07-21 14:07 | PM.OP.1 ---
Operative Date/Time/Diagnoses Date of procedure: 07/21/21 Time of procedure: 14:07 Pre-op diagnosis: Periumbilical hernia reducable Post-op diagnosis: same Procedure & Clinicians Procedure: Open umbilical hernia repair with mesh Same procedure as scheduled: Yes Indications: Symptomatic Reducible periumbilical hernia Surgeon: Swapnil Cuenca Anesthesia Type: General Operative Notes Findings: 1 cm fascial defect containing viable omentum Specimen(s): none sent Estimated Blood Loss (mL): 10 Procedure in detail: Patient was brought to the operating room placed supine on the table. Bilateral lower extremity compression devices were applied. General anesthesia was induced and they were intubated with an endotracheal tube. They received 2 g of Ancef prior to skin incision. They were prepped and draped in sterile fashion. A time-out was performed. A 4 cm incision was made in the midline superior to the umbilicus. The subcutaneous tissues were divided. The caio- umbilical hernia was identified and the hernia sac was dissected out circumferentially off the fascia defect. The hernia sac was sharply opened and contained viable omentum. The omentum was reduced back into the abdomen. Using blunt dissection I carefully carefully freed the hernia sac from beneath the fascia defect in order to accomodate the mesh. The fascia defect was 1.5 cm in maximal diameter. A Bard Ventralex ST hernia patch 4 cm was inserted beneath the fascia defect and above the peritoneum in a sublay position. The mesh was anchored in multiple locations using Ethibond suture to the fascia and the fascial defect was closed over the mesh. The umbilical skin was tacked to the subcutaneous tissues and then the remainder of the subcutaneous tissues were reapproximated using 3 0 Vicry,l skin closed with 4 0 Monocryl followed by the application of Dermabond and Steri-Strips. Sponge instrument count at the end of the operation was correct. Patient tolerated procedure well was extubated and transferred to postoperative care unit in stable condition. Complications: none Post-operative Condition: stable Disposition: same day surgery
== END 2021-07-21 14:37 | disposition home or self-care (01) ==
PROVIDERS: PCP Nurse Practitioner Family; Referring Provider Surgery; Visit Provider Surgery
PROC: (CPT 49585; principal; 2021-07-21 13:00)
DX: K42.9 Umbilical hernia without obstruction or gangrene (principal); E66.9 Obesity, unspecified; G47.33 Obstructive sleep apnea (adult) (pediatric); K21.9 Gastro-esophageal reflux disease without esophagitis; F41.9 Anxiety disorder, unspecified; R73.03 Prediabetes; K76.0 Fatty (change of) liver, not elsewhere classified; Z68.30 Body mass index [BMI] 30.0-30.9, adult
CPT/HCPCS: 49585; 82962; C1781; J0330; J0690; J1100; J1885; J2704; J3010

== ENCOUNTER → 2023-03-02 12:46 | Outpatient (CLI) | payer MEDICARE, SELFPAY ==
[2021-07-14 10:15] VITALS: BMI 31.2
--- NOTE | 2023-03-02 | DI.MRI.S_ITS ---
PROCEDURE: MR WRIST LT W CON INDICATIONS: LEFT WRIST PAIN / RULE OUT TFCC TECHNIQUE: After the administration of 3-4 mL of dilute intra-articular Gadolinium contrast into the radiocarpal compartment, coronal T1 spin echo with fat saturation and T2 fast spin echo with fat saturation, axial T1 spin echo and T2 fast spin echo with fat saturation, sagittal T1 spin echo with and without fat saturation through the wrist. COMPARISON: [facility], [place], XR WRIST 3+ VIEWS LEFT, 01/18/2023, 12:07. [facility], , [place] WRIST INJECTION MR/CT LT, 03/02/2023, 13:04. FINDINGS: Image quality: Excellent. Bones and cartilage: The carpal bones are normally aligned. No evidence for avascular necrosis. Mild osseous edema is seen within the scaphoid, lunate, and triquetrum that may be related to osseous contusions or degenerative subchondral edema. Partial-thickness cartilage loss is seen at the 1st carpometacarpal joint with subchondral cystic changes and marginal osteophyte formation. Mild degenerative changes are seen at the triscaphe joint and the radiocarpal articulations. Carpal ligaments: There is degenerative perforation of the scapholunate ligament with extravasation of radiocarpal contrast material into the midcarpal compartment. The dorsal and volar bands of the ligament appear to remain intact without widening of the scapholunate interval. Lunotriquetral ligament is grossly intact. On sagittal images, the pisohamate ligament appears intact. Triangular fibrocartilage complex: There is a large defect within the central triangular fibrocartilage disc with extravasation of radiocarpal contrast material into the distal radioulnar joint. Tendons and soft tissues: The carpal tunnel structures appear normal, including the median nerve. The ulnar nerve appears normal within Guyon's canal. There is mild to moderate extensor carpi ulnaris tendinosis. Mild de Quervain tenosynovitis involving the 1st extensor compartments. Fluid within the 2nd, 3rd, and 4th extensor compartments may be related to the arthrogram injection versus secondary to tenosynovitis. IMPRESSION: 1. Large full-thickness defect within the central triangular fibrocartilage disc with extravasation of contrast material into the distal radioulnar joint. 2. Mild osseous edema within the proximal carpal row is nonspecific and may be secondary to osseous contusions or degenerative subchondral edema. 3. Suspected degenerative perforation of the membranous portion of the scapholunate ligament with contrast extravasation into the midcarpal compartment. The volar and dorsal components of the ligament are intact. 4. [id number] central carpi ulnaris tendinosis. 5. Mild de Quervain tenosynovitis involving the abductor pollicis longus and extensor pollicis brevis tendons in the 1st extensor compartment. 6. 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 Mild degenerative changes at the triscaphe and radiocarpal joints. Approved by: Jairo Lopez M.D. on 03/03/2023 at 12:37
--- NOTE | 2023-03-02 | DI.RAD.S_ITS ---
PROCEDURE: [place] WRIST INJECTION MR/CT LT INDICATIONS: LEFT WRIST PAIN / RULE OUT TFCC COMPARISON: None TECHNIQUE: After informed consent had been obtained, the wrist was examined fluoroscopically, and a site chosen for injection of the radiocarpal compartment from a dorsal approach. Skin was prepped and draped in a sterile fashion and 1% lidocaine infiltrated from the skin down to the articular surface. A hypodermic needle was then introduced into the articular space and a modest amount of contrast medium was instilled confirming intra-articular needle tip placement. This was followed by approximately 4 mL of a dilute gadolinium solution. Needle was removed and dressing was applied. The patient experienced no complications throughout the procedure and left the fluoroscopic suite in no apparent distress. FINDINGS: A single fluoroscopic spot image demonstrates intra-articular location to injected iodinated contrast. IMPRESSION: Successful fluoroscopic-guided administration of dilute Gadolinium solution for wrist MR arthrogram. Dictated by: Jairo Jhaveri M.D. on 03/02/2023 at 14:31 Approved by: Jairo Jhaveri M.D. on 03/02/2023 at 14:32
== END ==
PROVIDERS: PCP Nurse Practitioner Family; Referring Provider Orthopaedic Surgery; Visit Provider Orthopaedic Surgery
DX: M65.4 Radial styloid tenosynovitis [de Quervain] (principal); M18.12 Unilateral primary osteoarthritis of first carpometacarpal joint, left hand; M25.532 Pain in left wrist
CPT/HCPCS: 20605; 73222; 76000

== ENCOUNTER → 2023-10-29 11:54 | Outpatient (CLI) | payer MEDICARE, SELFPAY ==
[2021-07-14 10:15] VITALS: BMI 31.2
--- NOTE | 2023-10-29 11:56 | DI.US.S_ITS ---
PROCEDURE: US CAROTID DOPPLER BI INDICATIONS: Dizziness and giddiness TECHNIQUE: Color and pulse Doppler interrogation was performed of both carotid systems, with image documentation and velocity measurements. COMPARISON: None. FINDINGS: Stenosis calculations are based on SRU (Society of Radiologists in Ultrasound) criteria. Right side: Brachial blood pressure: 122/81 mm Hg. Common carotid artery peak systolic velocity: 63 cm/sec. Internal carotid artery peak systolic velocity: 40 cm/sec. Internal carotid artery end diastolic velocity: 18 cm/sec. External carotid artery peak systolic velocity: 50 cm/sec. ICA/CCA peak systolic ratio: 0.6 . Man scale imaging description: No significant atherosclerotic plaques Percent internal carotid artery stenosis: Less than 50% stenosis . Vertebral artery: Flow direction is antegrade. Left side: Brachial blood pressure: 124/83 mm Hg. Common carotid artery peak systolic velocity: 63 cm/sec. Internal carotid artery peak systolic velocity: 40 cm/sec. Internal carotid artery end diastolic velocity: 18 cm/sec. External carotid artery peak systolic velocity: 58 cm/sec. ICA/CCA peak systolic ratio: 0.7 . Man scale imaging description: Minimal atherosclerotic plaques Percent internal carotid artery stenosis: Less than 50% stenosis . Vertebral artery: Flow direction is antegrade. IMPRESSION: Less than 50% stenosis of the bilateral internal carotid arteries. Dictated by: Arturo Perez M.D. on 10/29/2023 at 14:23 Approved by: Arturo Perez M.D. on 10/29/2023 at 14:25
== END ==
LOC: US 11:55
PROVIDERS: PCP Family Medicine; Referring Provider Family Medicine; Visit Provider Family Medicine
DX: I65.23 Occlusion and stenosis of bilateral carotid arteries (principal); I95.1 Orthostatic hypotension; R42 Dizziness and giddiness
CPT/HCPCS: 93880

== ENCOUNTER → 2023-11-05 11:34 | Outpatient (CLI) | payer MEDICARE, SELFPAY ==
[2021-07-14 10:15] VITALS: BMI 31.2
--- NOTE | 2023-11-05 11:35 | DI.RAD.S_ITS ---
Bone Density Report Name: REGLA العلي Age: 68 Sex: Female Ethnicity: White Date of : 1955 Indication: postmenopausal; screening for osteoporosis; Referring Provider: SHAW JACINTO Study: Bone densitometry was performed. Exam Date: November 05, 2023 Accession number: [id number] Bone Density: Region BMD T-score Z-score Classification AP Spine(L1, L2, L4) 1.085 0.5 2.6 Normal Femoral Neck (Left) 0.640 -1.9 -0.1 Osteopenia Total Hip (Left) 0.812 -1.1 0.4 Osteopenia Femoral Neck (Right) 0.632 -2.0 -0.1 Osteopenia Total Hip (Right) 0.804 -1.1 0.4 Osteopenia Total Hip Mean 0.808 -1.1 0.4 Osteopenia World Health Organization criteria for BMD impression classify patients as: Normal (T-score at or above -1.0), Osteopenia (T-score between -1.0 and -2.5), or Osteoporosis (T-score at or below -2.5). 10-year Fracture Risk(1): Major Osteoporotic Fracture 11% Hip Fracture 2.0% Reported Risk Factors: [place] (), Neck BMD=0.632, BMI=30.4 (1) FRAX(R) Version 3.08. Fracture probability calculated for an untreated patient. Fracture probability may be lower if the patient has received treatment. Impression: The patient has low bone mass, based on the Right Femoral Neck T-score. The patient has an estimated ten-year risk of hip fracture of 2% and an estimated ten-year risk of major fracture of 11%, based on the WHO FRAX algorithm. Discussion: BONE DENSITY IS LOW AT ONE OR MORE SKELETAL SITES. This patient's lowest T-score is low at one or more skeletal sites. It meets the World Health Organization's (WHO) criteria for low bone mass (T-score between -1.0 and -2.5). The patient's 10-year risk of fracture as calculated by FRAX is less than the threshold where pharmacological therapy is recommended by the National Osteoporosis Foundation (NOF). However, all treatment decisions require clinical judgment and consideration of individual patient factors, including patient preferences, comorbidities, previous drug use, risk factors not captured in the FRAX model (e.g., frailty, falls, vitamin D deficiency, increased bone turnover, interval significant decline in bone density) and possible under or overestimation of fracture risk by FRAX. The patient should follow a healthful lifestyle (good nutrition with adequate calcium and vitamin D, and appropriate weight-bearing exercise). Follow-Up: Consider repeating this study in 2 to 3 years to reassess this patient's status, or sooner if there is some new clinical indication. Reported by: JUANCARLOS TRINIDAD M.D. on 11/05/2023 12:07:00 PM.
== END ==
PROVIDERS: PCP Family Medicine; Referring Provider Family Medicine; Visit Provider Family Medicine
DX: Z78.0 Asymptomatic menopausal state (principal); M85.851 Other specified disorders of bone density and structure, right thigh
CPT/HCPCS: 77080

== ENCOUNTER → 2024-05-12 11:53 | Outpatient (CLI) | payer MEDICARE, SELFPAY ==
[2021-07-14 10:15] VITALS: BMI 31.2
--- NOTE | 2024-05-12 11:55 | DI.US.S_ITS ---
PROCEDURE: US ABDOMEN LIMITED INDICATIONS: LLQ ABD PAIN TECHNIQUE: Real-time scanning was performed of the periumbilical ventral abdominal wall COMPARISON: None. FINDINGS: The area of interest, normal muscular and fascial planes are maintained. No evidence of ventral hernia. IMPRESSION: Unremarkable soft tissue ultrasound without evidence of periumbilical hernia. Study limited by patient body habitus. Approved by: Marco Canales M.D. on 05/12/2024 at 17:51
== END ==
PROVIDERS: PCP Family Medicine; Referring Provider Family Medicine; Visit Provider Family Medicine
DX: R10.32 Left lower quadrant pain (principal)
CPT/HCPCS: 76705

== ENCOUNTER → 2024-06-26 14:55 | Outpatient (CLI) | payer MEDICARE, SELFPAY ==
[2021-07-14 10:15] VITALS: BMI 31.2
--- NOTE | 2024-06-26 | DI.CT.S_ITS ---
PROCEDURE: CT ABDOMEN PELVIS W CON INDICATIONS: diverticulosis TECHNIQUE: After the administration of intravenous contrast, axial sections acquired from the lung bases to the pubic symphysis. Coronal and sagittal reformats were performed. For radiation dose reduction, the following was used: automated exposure control, adjustment of mA and/or kV according to patient size. COMPARISON: [facility], CT, CT ABDOMEN PELVIS W CON, 07/13/2021, 18:25. FINDINGS: Image quality: Diagnostic Lower chest: Basal atelectasis/scarring. Mild nonspecific distal esophageal wall thickening Prominent fluid adjacent to the distal esophagus, probably of pericardial fold suspect small hiatal hernia. Liver: Possible hepatic steatosis Gallbladder and biliary system: Cholecystectomy clips, nondilated biliary system allowing for postsurgical state Pancreas: Mild parenchymal atrophy. No ductal dilation Spleen: Nonenlarged Adrenals: No discrete nodules Kidneys: Scattered cysts. Subcentimeter lesions are too small to characterize, usually also cysts. No hydronephrosis or solid/complicated renal mass. Vessels and lymph nodes: The main portal vein appears patent. Abdominal aortic aneurysm. No pathologic lymph nodes by size criteria. Bowel and peritoneum: No evidence of small bowel obstruction. No drainable abscess. No pathologic ascites Colonic diverticula are seen. Focal xxfj-ko-ppavyjog fat stranding is seen along the proximal sigmoid colon. Overall isjk-kv-xtwginss fecal loading. The appendix is nondilated. Body wall: 2.9 centimeter right inguinal hernia containing fat and congested vessels with small amount of edematous fluid. Pelvis: Unremarkable urinary bladder. The uterus is absent Bones: Degenerative changes. Mild leftward spinal curvature. IMPRESSION: Sigmoid diverticulitis. No drainable abscess. Consider colonoscopy correlation following treatment. Background significant colonic diverticulosis. No small bowel obstruction. Right inguinal hernia into the canal of [place], containing fat, congested vessels, and a small amount of edema/fluid. Other findings above. Dictated by: Horace Cui M.D. on 06/27/2024 at 11:12 Approved by: Horace Cui M.D. on 06/27/2024 at 11:16
== END ==
PROVIDERS: PCP Family Medicine; Referring Provider Physician Assistant; Visit Provider Physician Assistant
DX: K57.32 Diverticulitis of large intestine without perforation or abscess without bleeding (principal); K40.90 Unilateral inguinal hernia, without obstruction or gangrene, not specified as recurrent; I71.40 Abdominal aortic aneurysm, without rupture, unspecified; N28.1 Cyst of kidney, acquired; R10.32 Left lower quadrant pain; Z98.890 Other specified postprocedural states; Z90.710 Acquired absence of both cervix and uterus
CPT/HCPCS: 74177; Q9967

== ENCOUNTER 2025-03-14 10:31 | Inpatient (IN) | payer MEDICARE, OTHER, SELFPAY ==
[2021-07-14 10:15] VITALS: BMI 31.2
[2025-03-14] VITALS (17 sets, daily range): BP systolic 100–123; BP diastolic 52–68; PULSE 57–84; RESP 16–19; TEMP 36–37.3; O2SAT 92–99; BMI 38.2; BMI 37.9
--- NOTE | 2025-03-14 10:40 | ED_ITS ---
HPI - Abdominal Pain General Chief Complaint: Abdominal Pain Stated Complaint: LLQ Abd pain/Covid+ Time Seen by Provider: 03/14/25 10:39 Source: patient Mode of arrival: Ambulatory History of Present Illness HPI narrative: Patient flown by helicopter from [place] from home. Patient states she tested positive for COVID yesterday. Has had fever. However last night around midnight had low lower quadrant pain. Patient given fentanyl by EMS prior to arrival. She is feeling better. She states she has intolerance to pain medication and nausea medication because it makes her very nauseous or gives her a headache. Patient has history of diverticulitis in the past and feels the same with left lower quadrant. No urinary complaints. Vital signs at this time are reassuring. Patient does have reproducible left lower quadrant tenderness. Related Data Home Medications ?Medication ?Instructions ?Recorded ?Confirmed cholecalciferol (vitamin D3) 50 75 mcg PO DAILY 03/14/25 mcg (2,000 unit) capsule magnesium oxide 500 mg capsule 500 mg PO BEDTIME 07/1703/14/25 twvwxku-iznvotfnawpux-hfaohzav 250 2 tab PO DAILY PRN Headache 07/21/21 03/14/25 mg-250 mg-65 mg tablet (Excedrin Extra Strength) calcium citrate 1,200 mg PO BEDTIME 07/21/21 03/14/25 omega-3 fatty acids-vitamin E 2,000 cap PO DAILY 07/2103/14/25 1,000 mg capsule Previous Rx's ?Medication ?Instructions ?Recorded acetaminophen 325 mg capsule 650 mg (2 x 325 mg) PO QI D PRN 07/21/21 (Tylenol) pain #60 caps Allergies Allergy/AdvReac Type Severity Reaction Status Date / Time ondansetron Allergy Headache Verified 07/31/21 11:01 hydromorphone AdvReac Vomiting Verified 07/31/21 11:01 meperidine (From Demerol) AdvReac Vomiting Verified 07/31/21 11:01 metoclopramide (From Reglan) AdvReac Headache Verified 07/31/21 11:01 phenobarbital AdvReac Seizure Verified 07/31/21 11:01 Review of Systems Review of Systems Narrative: GENERAL: Negative chills, fatigue, malaise, positive fever, sweats. HEENT: Negative sinus pain, ear pain, sore throat RESPIRATORY: Negative dyspnea, positive cough CARDIOVASCULAR: Negative chest pain, palpitations GASTROINTESTINAL: Negative vomiting, nausea, positive abdominal pain : Negative dysuria, frequency, hematuria MUSCULOSKELETAL: Negative muscle or bony pain SKIN: Negative rash, skin lesions NEUROLOGIC: Negative weakness, numbness ROS Unobtainable: All systems reviewed & are unremarkable except as noted in HPI and below Patient History Medical History (Updated 03/14/25 @ 15:17 by Edson Conklin MD) Eyelid abnormality Cataract Anxiety Insomnia Sleep apnea Pre-diabetes Surgical History History of bladder surgery History of tonsillectomy Hx of cholecystectomy (08/07/18) Hx of repair of rotator cuff Status post right knee replacement S/P JULIA-BSO S/P operative procedure on shoulder Family History Father Heart disease Cancer Non-Hodgkin lymphoma Grandmother Heart disease Cancer Grandmother Diabetes mellitus Gallstones Grandfather Diabetes mellitus Social History household members: children Smoking Status: Former smoker alcohol intake: never substance use type: does not use additional social history: House [place] [address], lives in [place]. Guardian for grandchild. Smoking Status: Former smoker alcohol intake frequency: 0-2 drinks per day Exam Narrative Exam Narrative: GENERAL: in no distress, not toxic not dyspneic HEAD: Normocephalic. EYES: Pupils equal round ENT: Mucous membranes moist. NECK: Trachea midline. CARDIOVASCULAR: Regular rate and rhythm RESPIRATORY: Diminished lung sounds bilaterally on the bases. GASTROINTESTINAL: Abdomen soft, reproducible lower quadrant tenderness left and right. No peritoneal signs bowel sounds are present. No guarding or rebound. EXTREMITIES: No gross deformities. BACK: No flank tenderness. NEURO: AOx4. Clear speech SKIN: Warm and dry PSYCH: Not anxious, is cooperative Initial Vital Signs Initial Vital Signs: Vital Signs Temperature 99.2 F 03/14/25 10:31 Pulse Rate 83 03/14/25 10:31 Respiratory Rate 19 03/14/25 10:31 Blood Pressure 120/66 03/14/25 10:31 Pulse Oximetry 96 03/14/25 10:31 Oxygen Delivery Method Room Air 03/14/25 10:31 Course Orders Ordered: ED Orders 03/14/25 10:39 CT abdomen pelvis w con Stat Complete Blood Count AUTO DIFF Stat Comprehensive Metabolic Panel Stat Lipase Stat 03/14/25 12:57 Urinalysis and Microscopic Stat 03/14/25 15:11 XR chest 1V Stat Al Hydrox/Mg Hydrox/Simethicone (Mag Hydrox/Alum/Simeth 30 Ml Udc) 30 ml PO Q6HR PRN PRN Reason: Dyspepsia Sodium Chloride (Normal Saline 0.9%) 1,000 mls @ 100 mls/hr IV CONT [facility] Last Admin: 03/14/25 16:55 Dose: 100 mls/hr Documented By: JOHN Piperacillin Sod/Tazobactam (Sod 3.375 gm/ Sodium Chloride) 100 mls @ 25 mls/hr IV Q8H [facility] Last Admin: 03/14/25 16:53 Dose: 25 mls/hr Documented By: JOHN Melatonin (Melatonin 3 Mg Tablet) 3 mg PO BEDTIME [facility] Naloxone HCl (Naloxone 0.4 Mg/Ml Vial) 0.2 mg IV Q2MIN PRN PRN Reason: Opiate Reversal Ondansetron HCl (Ondansetron 4 Mg/2 Ml Inj) 4 mg IV Q8HR PRN PRN Reason: Nausea And Vomiting Oxycodone HCl (Oxycodone Ir 5 Mg Tablet) 5 mg PO Q3H PRN PRN Reason: Pain, Moderate (4-6) Last Admin: 03/14/25 16:57 Dose: 5 mg Documented By: JOHN Oxycodone HCl (Oxycodone Ir 10 Mg Tablet) 10 mg PO Q3H PRN PRN Reason: Pain, Severe (7-10) Pantoprazole Sodium (Pantoprazole Dr 20 Mg Tablet) 20 mg PO 0600 [facility] Discontinued Medications Acetaminophen (Acetaminophen 325 Mg Tablet) 650 mg PO NOW ONE Stop: 03/14/25 15:43 Last Admin: 03/14/25 15:53 Dose: 650 mg Documented By: KOTA Amoxicillin/Clavulanate Potassium (Amoxicillin/Clav 875/125 Mg) 1 tab PO NOW ONE Stop: 03/14/25 12:41 Last Admin: 03/14/25 12:58 Dose: 1 tab Documented By: KOTA Fentanyl (Fentanyl 100 Mcg/2 Ml Inj) 100 mcg IV NOW ONE Stop: 03/14/25 12:41 Last Admin: 03/14/25 12:57 Dose: 100 mcg Documented By: KOTA Sodium Chloride (Normal Saline 0.9%) 1,000 mls @ 1,000 mls/hr IV BOLUS ONE Stop: 03/14/25 11:38 Last Infusion: 03/14/25 14:02 Dose: Infused Documented By: Admin: 03/14/25 11:05 Dose: 1,000 mls/hr Documented By: KOTA Ceftriaxone Sodium 2,000 mg/ (Sodium Chloride) 100 mls @ 200 mls/hr IV NOW ONE Stop: 03/14/25 15:13 Last Admin: 03/14/25 16:43 Dose: Not Given Documented By: JOHN Metronidazole (Flagyl) 500 mg in 100 mls @ 100 mls/hr IV NOW ONE Stop: 03/14/25 16:11 Last Admin: 03/14/25 16:43 Dose: Not Given Documented By: JOHN Vital Signs Vital signs: Vital Signs - 8 hr 03/14/25 10:31 03/14/25 10:41 03/14/25 11:00 Temperature 99.2 F Pulse Rate 83 84 Respiratory Rate 19 Blood Pressure 120/66 100/59 L Pulse Oximetry 96 96 Oxygen Delivery Method Room Air 03/14/25 11:00 03/14/25 11:29 03/14/25 11:29 Temperature Pulse Rate 78 71 Respiratory Rate Blood Pressure 122/56 L Pulse Oximetry 97 99 Oxygen Delivery Method 03/14/25 11:30 03/14/25 11:30 03/14/25 12:00 Temperature Pulse Rate 71 Respiratory Rate Blood Pressure 109/56 L 120/57 L Pulse Oximetry 99 Oxygen Delivery Method 03/14/25 12:00 03/14/25 12:30 03/14/25 12:30 Temperature Pulse Rate 71 75 Respiratory Rate Blood Pressure 123/58 L Pulse Oximetry 98 98 Oxygen Delivery Method 03/14/25 13:00 03/14/25 13:00 03/14/25 13:30 Temperature Pulse Rate 76 Respiratory Rate Blood Pressure 112/60 111/68 Pulse Oximetry 97 Oxygen Delivery Method 03/14/25 13:30 Temperature Pulse Rate 77 Respiratory Rate Blood Pressure Pulse Oximetry 93 Oxygen Delivery Method MDM - Abdominal Pain Lab Data 03/14/25 10:39 03/14/25 10:39 Labs: Lab Results 03/14/25 03/14/25 Range/Units 10:39 12:57 WBC 8.2 (4.5-11.0) X10^3/uL RBC 4.64 (4.0-5.2) X10^6/uL Hgb 14.7 (12.0-16.0) g/dL Hct 42.6 (36-46) % MCV 91.8 (80-100) fL MCH 31.8 (26-34) PG MCHC 34.6 (30-36) % RDW 13.4 (11.6-14.8) % Plt Count 221 (150-400) X10^3/uL Neut % (Auto) 71.1 (50-75) % Lymph % (Auto) 19.0 L (25-40) % [place] % (Auto) 8.5 (3-14) % Eos % (Auto) 0.7 L (2-4) % Baso % (Auto) 0.7 (0-2) % Neut # (Auto) 5800 (4915-2520) /uL Lymph # (Auto) 1600 (9265-0051) /uL [place] # (Auto) 700 (0-900) /uL Eos # (Auto) 100 (0-450) /uL Baso # (Auto) 100 (0-100) /uL Sodium 134 L (137-145) mmol/L Potassium 4.0 (3.4-5.1) mmol/L Chloride 105 (98-107) mmol/L Carbon Dioxide 20 L (22-32) mmol/L BUN 12 (7-17) mg/dL Creatinine 0.70 (0.52-1.04) mg/dL Estimated GFR > 60 (>60) mL/min BUN/Creatinine Ratio 17.1 (6-22) Glucose 130 H (70-99) mg/dL Calcium 8.7 (8.4-10.2) mg/dL Total Bilirubin 0.6 (0.2-1.3) mg/dL AST 23 (14-36) IU/L ALT 20 (<35) IU/L Alkaline Phosphatase 70 (38-126) U/L Total Protein 7.0 (6.3-8.2) g/dL Albumin 4.2 (3.5-5.0) g/dL Globulin 2.8 (1.7-4.1) g/dL Albumin/Globulin Ratio 1.5 (1.0-2.8) Lipase 36 (23-300) U/L Urine Color Yellow Urine Appearance Clear Urine pH 6.5 (4.5-8.0) Ur Specific [place] <=1.005 (1.000-1.035) Urine Protein Negative (Negative) Urine Glucose (UA) Negative (Negative) g/dL Urine Ketones Negative (NEGATIVE) Urine Occult Blood Negative (Negative) Urine Nitrate Negative (Negative) Urine Bilirubin Negative (NEGATIVE) Urine Urobilinogen 1.0 (0.2) E.U./dL Ur Leukocyte Esterase Negative (NEGATIVE) Urine RBC None seen (0-5/HPF) Urine WBC None seen (0-5/HPF) Ur Squamous Epith Cells None seen (0-5/HPF) Urine Bacteria None seen (None) Ur Culture Indicated? Cult not indicated Vol Urine Centrifuged 10ml (spun) Imaging Data CT scan - abdomen/pelvis: Radiologist's Impression: [address] [address] [address] Scan Report Signed Patient: Miguelina Haddad MR#: [id number] : 1955 Acct:[id number] Age/Sex: 69 / F Date of Service: 03/14/25 Loc: ED Accession Number: [id number] Procedure: CT abdomen pelvis w con Ordering Provider: Edson Conklin MD PROCEDURE: CT ABDOMEN PELVIS W CON INDICATIONS: Left lower quadrant pain TECHNIQUE: After the administration of intravenous contrast, axial sections acquired from the lung bases to the pubic symphysis. Coronal and sagittal reformats were performed. For radiation dose reduction, the following was used: automated exposure control, adjustment of mA and/or kV according to patient size. COMPARISON: [facility], CT, CT ABDOMEN PELVIS WITH CONTRAST, 08/02/2024, 19:24. [facility], CT, CT ABDOMEN PELVIS W CON, 06/26/2024, 16:03. FINDINGS: Image quality: Diagnostic. Lower Chest: No significant findings. ABDOMEN: Liver: No solid mass. Gallbladder: Absent. Biliary ducts: No biliary dilation. Pancreas: No ductal dilation. Spleen: Size is within normal limits. Adrenal Glands: No adrenal nodules. Kidneys and Ureters: No hydronephrosis. No solid mass. No complex renal cystic lesion which requires follow up. Stomach and Bowel: Left lower quadrant diverticulitis, (3/43). This is at the same site of prior diverticulitis. Overall the inflammation is increased. Scant adjacent free air. No abscess. Normal appendix. No small bowel obstruction. The stomach is within normal limits. Peritoneum: No abnormal intraperitoneal fluid. No free air. Ventral Wall: No significant ventral hernia. Abdominal Nodes: No retroperitoneal or mesenteric adenopathy by size criteria. Vessels: Aorta and inferior vena cava are normal in size. PELVIS: Pelvic Organs: Uterus is absent. Bladder: No bladder wall thickening. Pelvic Nodes: No enlarged lymph nodes. Miscellaneous: Small fat containing right inguinal hernia. Subcutaneous thickening at the buttocks is unchanged. Bones: No aggressive osseous abnormality. Scoliosis. Multilevel DDD. IMPRESSION: Acute on chronic left lower quadrant diverticulitis. Scant amount of free air in the left lower quadrant. No abscess. Dictated by: Agustin Phillips M.D. on 03/14/2025 at 11:59 Approved by: Agustin Phillips M.D. on 03/14/2025 at 12:11 MDM Narrative Medical decision making narrative: Patient flown by helicopter from [place] from home. Patient states she tested positive for COVID yesterday. Has had fever. However last night around midnight had low lower quadrant pain. Patient given fentanyl by EMS prior to arrival. She is feeling better. She states she has intolerance to pain medication and nausea medication because it makes her very nauseous or gives her a headache. Patient has history of diverticulitis in the past and feels the same with left lower quadrant. No urinary complaints. Vital signs at this time are reassuring. Patient does have reproducible left lower quadrant tenderness. After history and exam, CBC CMP urinalysis CT abdomen pelvis normal saline MDM Differential considered: Includes but not limited to diverticulitis colitis UTI pyelonephritis kidney stone viral syndrome Medical records reviewed: No recent visit for this complaint Lab Test results independently reviewed as above. Pertinent findings: WBC 8.2 sodium 134 potassium 4.0 BUN 12 creatinine 0.7 Imaging studies independently reviewed: CT abdomen and pelvis acute diverticulitis Consultations: 3:10 p.m.. Spoke with hospitalist dr lazcano, would like chest x-ray and who will admit patient. Re-evaluations: 12:40 p.m.. Updated patient results. She does not want to be admitted. She would like to try fentanyl again as EMS did give it to her. She desires discharge home. She had Augmentin last time for diverticulitis and it did help. 3:00 p.m.. Updated patient and she threw up her medications. She does not feel well enough to go home. She does agree for admission. Discussion: Appropriate for discharge home. Exam is reassuring. Return precautions reviewed with patient. Nontoxic discharge. Pain is controlled. Antibiotics have been started. She desires discharge home. Addendum. Appropriate for admission. Patient unable to get control of nausea. Threw up her medications. She does desire for admission. IV Rocephin and Flagyl have been ordered. Diagnosis: Acute diverticulitis Discharge Plan Departure Patient Disposition: Admitted as Observation Clinical Impression: Acute diverticulitis Admit Date/Time: 03/14/25 15:12 Admit Provider: Mark Lazcano
[2025-03-14 11:05] LABS: Add Manual Diff / Slide Review NO; Hematocrit 42.6 % (36-46); Hemoglobin 14.7 g/dL (12.0-16.0); Lymphocytes Absolute Auto 1600 /uL (1100-4500); Mean Corpuscular HGB Conc 34.6 % (30-36); Mean Corpuscular Hemoglobin 31.8 PG (26-34); Mean Corpuscular Volume 91.8 fL (80-100); Platelet Count 221 X10^3/uL (150-400)
[2025-03-14] MEDS: SODIUM CHLORIDE 0.9% 1,000 ML 1000 ML IV (11:05)
[2025-03-14 11:20] LABS: Alanine Aminotransferase 20 IU/L (<35); Albumin 4.2 g/dL (3.5-5.0); Albumin Globulin Ratio 1.5 (1.0-2.8); Alkaline Phosphatase 70 U/L (38-126); Blood Urea Nitrogen 12 mg/dL (7-17); Calcium 8.7 mg/dL (8.4-10.2); Carbon Dioxide 20 mmol/L (22-32); Chloride 105 mmol/L (98-107); Estimated Glomerular Filt Rate > 60 mL/min (>60); Globulin 2.8 g/dL (1.7-4.1); Glucose 130 mg/dL (70-99); HEMOLYSIS < 15 (0-50); Lipase 36 U/L (23-300); Potassium 4.0 mmol/L (3.4-5.1); Sodium 134 mmol/L (137-145); Total Protein 7.0 g/dL (6.3-8.2)
[2025-03-14] MEDS: fentaNYL 100 MCG/2 ML INJ IV (12:57)
[2025-03-14] MEDS: AMOXICILLIN/CLAV 875/125 MG 1 TAB PO (12:58)
[2025-03-14 13:13] LABS: Appearance Urine UA CLEAR; Bilirubin Urine UA NEGATIVE (NEGATIVE); Color Urine UA YELLOW; Glucose Urine UA NEGATIVE (Negative); Ketones Urine UA NEGATIVE (NEGATIVE); Leukocyte Esterase Urine UA NEGATIVE (NEGATIVE); Nitrite Urine UA NEGATIVE (Negative); Occult Blood Urine UA NEGATIVE (Negative); Protein Urine UA NEGATIVE (Negative); Specific Gravity Urine UA <=1.005 (1.000-1.035); Urobilinogen Urine UA 1.0 E.U./dL (0.2); pH Urine UA 6.5 (4.5-8.0)
[2025-03-14 13:15] LABS: Culture Indicated Urine Cult Not Indicated
--- NOTE | 2025-03-14 15:11 | DI.RAD.S_ITS ---
PROCEDURE: XR CHEST 1V INDICATIONS: Cough TECHNIQUE: One view of the chest was acquired. COMPARISON: None. FINDINGS: Surgical changes and devices: None. Lungs and pleura: Lungs are clear. No pleural effusions or pneumothorax. Mediastinum: Mediastinal contours appear normal. Heart size is normal. Bones and chest wall: No suspicious bony lesions. Overlying soft tissues appear unremarkable. IMPRESSION: No acute cardiopulmonary pathology. Dictated by: Cirilo Lobo M.D. on 03/14/2025 at 16:04 Approved by: Cirilo Lobo M.D. on 03/14/2025 at 16:04
--- NOTE | 2025-03-14 15:16 | PC.NURSE ---
Road test failed; MD aware. Pt reports exhaustion and headache.
[2025-03-14] MEDS: ACETAMINOPHEN 325 MG TABLET 650 MG PO (15:53)
[2025-03-14] MEDS: PIPERACILLIN/TAZO 3.375 GM in SODIUM CHLORIDE 0.9% 100 ML IV (16:53)
[2025-03-14] MEDS: SODIUM CHLORIDE 0.9% 1,000 ML 100 ML IV (16:55)
[2025-03-14] MEDS: OXYCODONE IR 5 MG TABLET PO (16:57)
[2025-03-14] MEDS: IBUPROFEN 400 MG TABLET PO (21:15)
[2025-03-15] VITALS (7 sets, daily range): BP systolic 107–123; BP diastolic 59–65; PULSE 55–67; RESP 16–19; TEMP 36.2–39; O2SAT 95–98
[2025-03-15] MEDS: PIPERACILLIN/TAZO 3.375 GM in SODIUM CHLORIDE 0.9% 100 ML IV ×4 (00:14→23:44)
[2025-03-15 06:04] LABS: Add Manual Diff / Slide Review NO; Hematocrit 39.5 % (36-46); Hemoglobin 13.7 g/dL (12.0-16.0); Lymphocytes Absolute Auto 1900 /uL (1100-4500); Mean Corpuscular HGB Conc 34.6 % (30-36); Mean Corpuscular Hemoglobin 31.8 PG (26-34); Mean Corpuscular Volume 91.9 fL (80-100); Platelet Count 187 X10^3/uL (150-400)
[2025-03-15] MEDS: PANTOPRAZOLE DR 20 MG TABLET PO (06:04)
[2025-03-15] MEDS: SODIUM CHLORIDE 0.9% 1,000 ML 100 ML IV ×2 (06:04→17:23)
[2025-03-15 06:13] LABS: Blood Urea Nitrogen 12 mg/dL (7-17); Calcium 8.1 mg/dL (8.4-10.2); Carbon Dioxide 24 mmol/L (22-32); Chloride 108 mmol/L (98-107); Estimated Glomerular Filt Rate > 60 mL/min (>60); Glucose 135 mg/dL (70-99); HEMOLYSIS < 15 (0-50); Potassium 3.5 mmol/L (3.4-5.1); Sodium 139 mmol/L (137-145)
[2025-03-15] MEDS: IBUPROFEN 400 MG TABLET PO (08:11)
[2025-03-15] MEDS: POTASSIUM CHLORIDE 20 MEQ TAB PO (09:50)
--- NOTE | 2025-03-15 12:21 | P.PN_ITS ---
Subjective Subjective Date Patient Seen: 03/14/25 Interval history: Chief complaint: Abdominal pain fever or chills and vomiting secondary to acute sigmoid diverticulitis with possible microperforation History of present illness: 03/14: 69-year-old female flown by helicopter from [place] with bilateral lower quadrant pain and tested positive for COVID yesterday. She was brought to the emergency room for evaluation. She has a past history of medical history of diverticulitis. Pain is intense localized in the lower quadrant escalating the through the day worsened by eating or drinking Findings in the emergency department significant for CT scan which shows severe diverticulosis of the sigmoid colon with focal diverticulitis and small areas of free air around the sigmoid. White blood cell count 8.2 chemistries otherwise unremarkable For past medical history, surgical history, family history and social history please see the bottom of the note. Review of systems: No chest pain or palpitation No shortness a breath No paresthesia or paresis Physical exam: Elderly white female in obvious discomfort appearing ill HEENT unremarkable Heart rate and rhythm regular Lungs clear from apices to lower levels there is crackles at the left base Abdomen is nondistended there are scant bowel sounds localized tenderness that is reproducible in bilateral lower quadrants She is alert and oriented neuro is nonfocal Objective laboratory and imaging study please see the bottom of the note: Assessment and plan: Acute sigmoid diverticulitis with severe diverticulosis with some minimal free air around the sigmoid possible micro perforation and risks of perforation and hemorrhage * Inpatient admission for intravenous fluids and intravenous Zosyn * Clear liquid diet advance as clinically indicated * Case discussed with surgery on-call so that they are aware of the potential for perforation or hemorrhage that might require surgical intervention COVID positive without signs of acute pneumonia, however outcomes for patient with a positive COVID-19 and acute diverticulitis is generally worse. (the Montenegrin surgeon, 202; gastroenterology 2020) * Contact and airborne precautions DVT prophylaxis: * SCDs only due to risk of bleeding Code status: Full code blue 55 minutes were involved in the care and management of this patient which include [id number] contact discussion physical examination review of laboratory and imaging studies both reports and the duct visualization of images as well as consultation of literature Exam Vital Signs (past 8 hours): - 03/15/25 04:57 03/15/25 07:00 03/15/25 09:48 Temperature 97.3 F L 97.1 F L Pulse Rate 55 L 58 L Respiratory Rate 16 18 Blood Pressure 107/63 123/64 Pulse Oximetry 95 98 98 Oxygen Delivery Method Room Air Oxygen Flow Rate 0 0 Oxygen Delivery Method Room Air Oxygen Flow Rate 0 Objective Labs 03/15/25 05:12 03/15/25 05:12 Labs: Laboratory Results - last 24 hr 03/14/25 03/15/25 12:57 05:12 WBC 7.0 RBC 4.30 Hgb 13.7 Hct 39.5 MCV 91.9 MCH 31.8 MCHC 34.6 RDW 13.5 Plt Count 187 Neut % (Auto) 60.0 Lymph % (Auto) 26.5 [place] % (Auto) 10.7 Eos % (Auto) 1.9 L Baso % (Auto) 0.9 Neut # (Auto) 4200 Lymph # (Auto) 1900 [place] # (Auto) 800 Eos # (Auto) 100 Baso # (Auto) 100 Sodium 139 Potassium 3.5 Chloride 108 H Carbon Dioxide 24 BUN 12 Creatinine 0.72 Estimated GFR > 60 BUN/Creatinine Ratio 16.7 Glucose 135 H Calcium 8.1 L Urine Color Yellow Urine Appearance Clear Urine pH 6.5 Ur Specific [place] <=1.005 Urine Protein Negative Urine Glucose (UA) Negative Urine Ketones Negative Urine Occult Blood Negative Urine Nitrate Negative Urine Bilirubin Negative Urine Urobilinogen 1.0 Ur Leukocyte Esterase Negative Urine RBC None seen Urine WBC None seen Ur Squamous Epith Cells None seen Urine Bacteria None seen Ur Culture Indicated? Cult not indicated Vol Urine Centrifuged 10ml (spun) [facility] Medical History (Updated 03/14/25 @ 15:17 by Edson Conklin MD) Eyelid abnormality Cataract Anxiety Insomnia Sleep apnea Pre-diabetes Surgical History History of bladder surgery History of tonsillectomy Hx of cholecystectomy (08/07/18) Hx of repair of rotator cuff Status post right knee replacement S/P JULIA-BSO S/P operative procedure on shoulder Family History Father Heart disease Cancer Non-Hodgkin lymphoma Grandmother Heart disease Cancer Grandmother Diabetes mellitus Gallstones Grandfather Diabetes mellitus Social History household members: children Smoking Status: Former smoker alcohol intake: never substance use type: does not use additional social history: House on [address], lives in [place]. Guardian for grandchild. Assessment & Plan Time-Based Coding :: [TOTAL MINUTES] spent with patient and on the chart (including review of chart, obtaining history, exam, reviewing outside data, placing orders, documenting exam and treatment plan, and counseling patient) on [DATE]. Quality VTE Deep Vein Thrombosis/Pulmonary Embolism Present on Admission: No
--- NOTE | 2025-03-15 12:36 | P.PN_ITS ---
Subjective Subjective Date Patient Seen: 03/15/25 Interval history: Chief complaint: Abdominal pain fever or chills and vomiting secondary to acute sigmoid diverticulitis with possible microperforation History of present illness: 03/14: 69-year-old female flown by helicopter from [place] with bilateral lower quadrant pain and tested positive for COVID yesterday. She was brought to the emergency room for evaluation. She has a past history of medical history of diverticulitis. Pain is intense localized in the lower quadrant escalating the through the day worsened by eating or drinking Findings in the emergency department significant for CT scan which shows severe diverticulosis of the sigmoid colon with focal diverticulitis and small areas of free air around the sigmoid. White blood cell count 8.2 chemistries otherwise unremarkable Hospital course: 03/15: Patient had pelvis that were painful patient is feeling lightheaded dizzy particularly if she walks more than back and forth to the bathroom with in her room was tried on regular diet without significant postprandial escalation in pain. No fevers or chills overnight Review of systems: No chest pain or palpitation No paresthesia or paresis Physical exam: Elderly white female in obvious discomfort appearing ill HEENT unremarkable Heart rate and rhythm regular Lungs clear from apices to lower levels there is crackles at the left base Abdomen is nondistended there are scant bowel sounds localized tenderness that is reproducible in bilateral lower quadrants She is alert and oriented neuro is nonfocal Objective laboratory and imaging study please see the bottom of the note: Assessment and plan: Acute sigmoid diverticulitis with severe diverticulosis with some minimal free air around the sigmoid possible micro perforation and risks of perforation and hemorrhage * Continue Inpatient admission for intravenous fluids and intravenous Zosyn and re-evaluate in 24 hours presently can not be discharge or de-escalated from IV antibiotics * Advancing diet and observing * Case discussed with surgery on-call so that they are aware of the potential for perforation or hemorrhage that might require surgical intervention COVID positive without signs of acute pneumonia, however outcomes for patient with a positive COVID-19 and acute diverticulitis is generally worse. (the [place]araguan surgeon, 2022; gastroenterology 2020) * Contact and airborne precautions DVT prophylaxis: * SCDs only due to risk of bleeding Code status: Full code blue 55 minutes were involved in the care and management of this patient which include [id number] contact discussion physical examination review of laboratory and imaging studies both reports and the duct visualization of images as well as consultation of literature Exam Vital Signs (past 8 hours): - 03/15/25 04:57 03/15/25 07:00 03/15/25 09:48 Temperature 97.3 F L 97.1 F L Pulse Rate 55 L 58 L Respiratory Rate 16 18 Blood Pressure 107/63 123/64 Pulse Oximetry 95 98 98 Oxygen Delivery Method Room Air Oxygen Flow Rate 0 0 Oxygen Delivery Method Room Air Oxygen Flow Rate 0 Objective Labs 03/15/25 05:12 03/15/25 05:12 Labs: Laboratory Results - last 24 hr 03/14/25 03/15/25 12:57 05:12 WBC 7.0 RBC 4.30 Hgb 13.7 Hct 39.5 MCV 91.9 MCH 31.8 MCHC 34.6 RDW 13.5 Plt Count 187 Neut % (Auto) 60.0 Lymph % (Auto) 26.5 [place] % (Auto) 10.7 Eos % (Auto) 1.9 L Baso % (Auto) 0.9 Neut # (Auto) 4200 Lymph # (Auto) 1900 [place] # (Auto) 800 Eos # (Auto) 100 Baso # (Auto) 100 Sodium 139 Potassium 3.5 Chloride 108 H Carbon Dioxide 24 BUN 12 Creatinine 0.72 Estimated GFR > 60 BUN/Creatinine Ratio 16.7 Glucose 135 H Calcium 8.1 L Urine Color Yellow Urine Appearance Clear Urine pH 6.5 Ur Specific [place] <=1.005 Urine Protein Negative Urine Glucose (UA) Negative Urine Ketones Negative Urine Occult Blood Negative Urine Nitrate Negative Urine Bilirubin Negative Urine Urobilinogen 1.0 Ur Leukocyte Esterase Negative Urine RBC None seen Urine WBC None seen Ur Squamous Epith Cells None seen Urine Bacteria None seen Ur Culture Indicated? Cult not indicated Vol Urine Centrifuged 10ml (spun) [facility] Medical History (Updated 03/14/25 @ 15:17 by Edson Conklin MD) Eyelid abnormality Cataract Anxiety Insomnia Sleep apnea Pre-diabetes Surgical History History of bladder surgery History of tonsillectomy Hx of cholecystectomy (08/07/18) Hx of repair of rotator cuff Status post right knee replacement S/P JULIA-BSO S/P operative procedure on shoulder Family History Father Heart disease Cancer Non-Hodgkin lymphoma Grandmother Heart disease Cancer Grandmother Diabetes mellitus Gallstones Grandfather Diabetes mellitus Social History household members: children Smoking Status: Former smoker alcohol intake: never substance use type: does not use additional social history: House on [address], lives in [place]. Guardian for grandchild. Assessment & Plan Time-Based Coding :: [TOTAL MINUTES] spent with patient and on the chart (including review of chart, obtaining history, exam, reviewing outside data, placing orders, documenting exam and treatment plan, and counseling patient) on [DATE]. Quality VTE Deep Vein Thrombosis/Pulmonary Embolism Present on Admission: No
--- NOTE | 2025-03-15 12:45 | P.HP_ITS ---
History of Present Illness History of Present Illness Date Patient Seen: 03/14/25 Chief complaint: LLQ Abd pain/Covid+ Narrative: Chief complaint: Abdominal pain fever or chills and vomiting secondary to acute sigmoid diverticulitis with possible microperforation History of present illness: 03/14: 69-year-old female flown by helicopter from [place] with bilateral lower quadrant pain and tested positive for COVID yesterday. She was brought to the emergency room for evaluation. She has a past history of medical history of diverticulitis. Pain is intense localized in the lower quadrant escalating the through the day worsened by eating or drinking Findings in the emergency department significant for CT scan which shows severe diverticulosis of the sigmoid colon with focal diverticulitis and small areas of free air around the sigmoid. White blood cell count 8.2 chemistries otherwise unremarkable For past medical history, surgical history, family history and social history please see the bottom of the note. Review of systems: No chest pain or palpitation No shortness a breath No paresthesia or paresis Physical exam: Elderly white female in obvious discomfort appearing ill HEENT unremarkable Heart rate and rhythm regular Lungs clear from apices to lower levels there is crackles at the left base Abdomen is nondistended there are scant bowel sounds localized tenderness that is reproducible in bilateral lower quadrants She is alert and oriented neuro is nonfocal Objective laboratory and imaging study please see the bottom of the note: Assessment and plan: Acute sigmoid diverticulitis with severe diverticulosis with some minimal free air around the sigmoid possible micro perforation and risks of perforation and hemorrhage * Inpatient admission for intravenous fluids and intravenous Zosyn * Clear liquid diet advance as clinically indicated * Case discussed with surgery on-call so that they are aware of the potential for perforation or hemorrhage that might require surgical intervention COVID positive without signs of acute pneumonia, however outcomes for patient with a positive COVID-19 and acute diverticulitis is generally worse. (the Kyrgyz surgeon, 2022; gastroenterology 2020) * Contact and airborne precautions DVT prophylaxis: * SCDs only due to risk of bleeding Code status: Full code blue 55 minutes were involved in the care and management of this patient which include [id number] contact discussion physical examination review of laboratory and imaging studies both reports and direct visualization of images as well as consultation of literature [facility] Medical History (Updated 03/14/25 @ 15:17 by Edson Conklin MD) Eyelid abnormality Cataract Anxiety Insomnia Sleep apnea Pre-diabetes Surgical History History of bladder surgery History of tonsillectomy Hx of cholecystectomy (08/07/18) Hx of repair of rotator cuff Status post right knee replacement S/P JULIA-BSO S/P operative procedure on shoulder Family History Father Heart disease Cancer Non-Hodgkin lymphoma Grandmother Heart disease Cancer Grandmother Diabetes mellitus Gallstones Grandfather Diabetes mellitus Social History household members: children Smoking Status: Former smoker alcohol intake: never substance use type: does not use additional social history: House [address], lives in [place]. Guardian for grandchild. Meds Home Medications and Allergies Home Medications ?Medication ?Instructions ?Recorded ?Confirmed ?Type cholecalciferol (vitamin D3) 50 75 mcg PO DAILY 03/14/25 History mcg (2,000 unit) capsule magnesium oxide 500 mg capsule 500 mg PO BEDTIME 07/1703/14/25 History acetaminophen 325 mg capsule 650 mg (2 x 325 mg) PO QI D PRN 07/21/21 03/14/25 Rx (Tylenol) pain #60 caps [id number]-pmsycllfqlmsf-elzgapgp 250 2 tab PO DAILY PRN Headache 07/21/21 03/14/25 History mg-250 mg-65 mg tablet (Excedrin Extra Strength) calcium citrate 1,200 mg PO BEDTIME 07/21/21 03/14/25 History omega-3 fatty acids-vitamin E 2,000 cap PO DAILY 07/2103/14/25 History 1,000 mg capsule Allergies Allergy/AdvReac Type Severity Reaction Status Date / Time ondansetron Allergy Headache Verified 07/31/21 11:01 hydromorphone AdvReac Vomiting Verified 07/31/21 11:01 meperidine (From Demerol) AdvReac Vomiting Verified 07/31/21 11:01 metoclopramide (From Reglan) AdvReac Headache Verified 07/31/21 11:01 phenobarbital AdvReac Seizure Verified 07/31/21 11:01 Exam Vital Signs (past 8 hours): - 03/15/25 04:57 03/15/25 07:00 03/15/25 09:48 Temperature 97.3 F L 97.1 F L Pulse Rate 55 L 58 L Respiratory Rate 16 18 Blood Pressure 107/63 123/64 Pulse Oximetry 95 98 98 Oxygen Delivery Method Room Air Oxygen Flow Rate 0 0 Oxygen Delivery Method Room Air Oxygen Flow Rate 0 Objective Labs 03/15/25 05:12 03/15/25 05:12 Labs: Laboratory Results - last 24 hr 03/14/25 03/15/25 12:57 05:12 WBC 7.0 RBC 4.30 Hgb 13.7 Hct 39.5 MCV 91.9 MCH 31.8 MCHC 34.6 RDW 13.5 Plt Count 187 Neut % (Auto) 60.0 Lymph % (Auto) 26.5 [place] % (Auto) 10.7 Eos % (Auto) 1.9 L Baso % (Auto) 0.9 Neut # (Auto) 4200 Lymph # (Auto) 1900 [place] # (Auto) 800 Eos # (Auto) 100 Baso # (Auto) 100 Sodium 139 Potassium 3.5 Chloride 108 H Carbon Dioxide 24 BUN 12 Creatinine 0.72 Estimated GFR > 60 BUN/Creatinine Ratio 16.7 Glucose 135 H Calcium 8.1 L Urine Color Yellow Urine Appearance Clear Urine pH 6.5 Ur Specific [place] <=1.005 Urine Protein Negative Urine Glucose (UA) Negative Urine Ketones Negative Urine Occult Blood Negative Urine Nitrate Negative Urine Bilirubin Negative Urine Urobilinogen 1.0 Ur Leukocyte Esterase Negative Urine RBC None seen Urine WBC None seen Ur Squamous Epith Cells None seen Urine Bacteria None seen Ur Culture Indicated? Cult not indicated Vol Urine Centrifuged 10ml (spun) Assessment & Plan Time-Based Coding :: [TOTAL MINUTES] spent with patient and on the chart (including review of chart, obtaining history, exam, reviewing outside data, placing orders, documenting exam and treatment plan, and counseling patient) on [DATE]. Quality VTE Deep Vein Thrombosis/Pulmonary Embolism Present on Admission: No
--- NOTE | 2025-03-15 13:00 | P.HP_ITS ---
History of Present Illness History of Present Illness Date Patient Seen: 03/15/25 Time Patient Seen: 13:00 Chief complaint: LLQ Abd pain/Covid+ Narrative: Miguelina is a 69-year-old woman who presented to the emergency department yesterday afternoon complaining of 1 day of abdominal pain. She was found to have a microperforation of a sigmoid diverticulum on CT scan. Her white blood cell count was normal. She was given Zosyn. She has been tolerating a regular diet. [facility] Medical History (Updated 03/14/25 @ 15:17 by Edson Conklin MD) Eyelid abnormality Cataract Anxiety Insomnia Sleep apnea Pre-diabetes Surgical History History of bladder surgery History of tonsillectomy Hx of cholecystectomy (08/07/18) Hx of repair of rotator cuff Status post right knee replacement S/P JULIA-BSO S/P operative procedure on shoulder Family History Father Heart disease Cancer Non-Hodgkin lymphoma Grandmother Heart disease Cancer Grandmother Diabetes mellitus Gallstones Grandfather Diabetes mellitus Social History household members: children Smoking Status: Former smoker alcohol intake: never substance use type: does not use additional social history: House [address], lives in [place]. Guardian for grandchild. Meds Home Medications and Allergies Home Medications ?Medication ?Instructions ?Recorded ?Confirmed ?Type cholecalciferol (vitamin D3) 50 75 mcg PO DAILY 03/14/25 History mcg (2,000 unit) capsule magnesium oxide 500 mg capsule 500 mg PO BEDTIME 07/1703/14/25 History acetaminophen 325 mg capsule 650 mg (2 x 325 mg) PO QI D PRN 07/21/21 03/14/25 Rx (Tylenol) pain #60 caps pktvylt-lhhhuszrhycvk-nncbjjtu 250 2 tab PO DAILY PRN Headache 07/21/21 03/14/25 History mg-250 mg-65 mg tablet (Excedrin Extra Strength) calcium citrate 1,200 mg PO BEDTIME 07/21/21 03/14/25 History omega-3 fatty acids-vitamin E 2,000 cap PO DAILY 07/2103/14/25 History 1,000 mg capsule Allergies Allergy/AdvReac Type Severity Reaction Status Date / Time ondansetron Allergy Headache Verified 07/31/21 11:01 hydromorphone AdvReac Vomiting Verified 07/31/21 11:01 meperidine (From Demerol) AdvReac Vomiting Verified 07/31/21 11:01 metoclopramide (From Reglan) AdvReac Headache Verified 07/31/21 11:01 phenobarbital AdvReac Seizure Verified 07/31/21 11:01 Exam Vital Signs (past 8 hours): - 03/15/25 07:00 03/15/25 09:48 Temperature 97.1 F L Pulse Rate 58 L Respiratory Rate 18 Blood Pressure 123/64 Pulse Oximetry 98 98 Oxygen Delivery Method Room Air Oxygen Flow Rate 0 Oxygen Delivery Method Room Air Oxygen Flow Rate 0 Narrative Exam Narrative: Abdomen is soft, nontender Objective Labs 03/15/25 05:12 03/15/25 05:12 Labs: Laboratory Results - last 24 hr 03/14/25 03/15/25 12:57 05:12 WBC 7.0 RBC 4.30 Hgb 13.7 Hct 39.5 MCV 91.9 MCH 31.8 MCHC 34.6 RDW 13.5 Plt Count 187 Neut % (Auto) 60.0 Lymph % (Auto) 26.5 [place] % (Auto) 10.7 Eos % (Auto) 1.9 L Baso % (Auto) 0.9 Neut # (Auto) 4200 Lymph # (Auto) 1900 [place] # (Auto) 800 Eos # (Auto) 100 Baso # (Auto) 100 Sodium 139 Potassium 3.5 Chloride 108 H Carbon Dioxide 24 BUN 12 Creatinine 0.72 Estimated GFR > 60 BUN/Creatinine Ratio 16.7 Glucose 135 H Calcium 8.1 L Urine Color Yellow Urine Appearance Clear Urine pH 6.5 Ur Specific [place] <=1.005 Urine Protein Negative Urine Glucose (UA) Negative Urine Ketones Negative Urine Occult Blood Negative Urine Nitrate Negative Urine Bilirubin Negative Urine Urobilinogen 1.0 Ur Leukocyte Esterase Negative Urine RBC None seen Urine WBC None seen Ur Squamous Epith Cells None seen Urine Bacteria None seen Ur Culture Indicated? Cult not indicated Vol Urine Centrifuged 10ml (spun) Assessment & Plan Assessment and plan (1) Acute diverticulitis: Status: Acute Plan Continue IV antibiotics until pain is substantially decreased and she was tolerating a regular diet at which time she could be discharged home. Time-Based Coding :: [TOTAL MINUTES] spent with patient and on the chart (including review of chart, obtaining history, exam, reviewing outside data, placing orders, documenting exam and treatment plan, and counseling patient) on [DATE]. Quality VTE Deep Vein Thrombosis/Pulmonary Embolism Present on Admission: No [employer] Controls Engineer Document charge(s): No
--- NOTE | 2025-03-15 13:36 | CM.DANOTE ---
Patient is a 69 yo female who was admitted INPT Status on 03/14/25 for COVID+ and possible perf. Pt has MCR for insurance and her PCP is Kimberley Arreaga. EMR was reviewed. Per MD, pt with COVID+ and respiratory distress and diverticulitis and possible perf. Surgeon Consult ordered. Not yet stable for discharge today. SW met bedside with pt and her 11 yo grandkhai Cahpa and explained role and pt confirms that they live together on [address] with their 4 cats and pt is active and independent at baseline. Pt does not use DME to ambulate and still drives and denies any hx of HH or SNF. Pt confirms that they have local friend who can assist but just had cataract surgery yesterday and therefore cannot drive. Pt's Dtr/DPOA Corrie (mother to grandkhai Chapa) lives in [facility] and working time clerk and unable to get time off work right now. Pt and grandson just got back from [facility] to [facility] and surrounding areas where grandson first contracted COVID and then pt got sick a few days later. SW discussed hospital policy of youth not rooming in with patients due to their age and if he has to remain for right now then cannot leave the room as he would be unsupervised and only 11 yo. Both pt and grandson acknowledged understanding. Attempted to brainstorm how to get grandkhai back home with someone to stay with him and pt states she has contacted her cousin in [place] asking if she can come pick up and delivery driver pt and get him back home and stay with him and waiting for an answer and will continue to try to find someone that grandson knows to help get him home. Unsafe to send suzette in taxi to walk [facility] at this time as he is only 11 yo and would be unchaperoned at this time. Grandson aware to stay in the room while he is here at the hospital. Pt also considering taking taxi back [facility] at d/c or friend to transport pending how many days she is in the hospital and if she gets more stamina back. Surgeon then arrived bedside for consultation of abd pain. Plan: SW to follow for Surgeon recommendations and confirm safe plan of home to [place] when stable and any further identified discharge planning needs. BERNIE Casiano Discharge Planning/Care Management CM Discharge Assessment Start: 03/14/25 16:25 Freq: Status: Active Protocol: Document 03/15/25 13:34 BF (Rec: 03/15/25 13:36 BF [id number]) Discharge Planning Assessment Assigned Discharge BERNIE Solano Outdoor Studies Professor DPOA/Assigned Dtr Corrie Designee Name Contact Information [phone] Advance Directives? No Advance Directives No on File History Provided By Patient,Medical Record Has Patient been No admitted in last 30 days? Prior Living House Arrangements Household Members children Comment Guardian for her 11 yo grandson Eduard Type of Drives own vehicle transporation used prior to admit Independent with ADL Yes 's Is patient alert and Yes oriented? Caregiver for Yes: guardian to her 11 yo grandson Another Barriers to Yes Discharge Comment Back to suzette Donald also in room Discharge Plan Home Transportation Friend Arrangement Referrals Initiated None needed Whiteboard Updated Yes in Patient Room with name and ext. # of Physician Office Secretary Review Status In Process Please Provide Date 03/15/25 Initial DC Assessment Was Performed Next Review Type Continued Stay Review
[2025-03-15] MEDS: OXYCODONE IR 5 MG TABLET PO (15:14)
[2025-03-15] MEDS: ACETAMINOPHEN 325 MG TABLET 650 MG PO (17:10)
[2025-03-16] MEDS: IBUPROFEN 400 MG TABLET PO (01:43)
[2025-03-16] MEDS: SODIUM CHLORIDE 0.9% 1,000 ML 100 ML IV (03:58)
[2025-03-16 06:00] VITALS: BP 116/71; PULSE 56; RESP 18; TEMP 36.2; O2SAT 99
[2025-03-16 06:16] LABS: Add Manual Diff / Slide Review NO; Hematocrit 37.1 % (36-46); Hemoglobin 12.8 g/dL (12.0-16.0); Lymphocytes Absolute Auto 2100 /uL (1100-4500); Mean Corpuscular HGB Conc 34.5 % (30-36); Mean Corpuscular Hemoglobin 31.7 PG (26-34); Mean Corpuscular Volume 91.8 fL (80-100); Platelet Count 179 X10^3/uL (150-400)
[2025-03-16 06:22] LABS: Blood Urea Nitrogen 10 mg/dL (7-17); Calcium 8.1 mg/dL (8.4-10.2); Carbon Dioxide 23 mmol/L (22-32); Chloride 112 mmol/L (98-107); Estimated Glomerular Filt Rate > 60 mL/min (>60); Glucose 107 mg/dL (70-99); HEMOLYSIS < 15 (0-50); Magnesium 2.0 mg/dL (1.6-2.3); Potassium 3.9 mmol/L (3.4-5.1); Sodium 139 mmol/L (137-145)
[2025-03-16] MEDS: PIPERACILLIN/TAZO 3.375 GM in SODIUM CHLORIDE 0.9% 100 ML IV (06:46)
[2025-03-16] MEDS: PANTOPRAZOLE DR 20 MG TABLET PO (06:46)
[2025-03-16 07:48] VITALS: BP 91/57; PULSE 56; RESP 15; TEMP 36.6; O2SAT 97
[2025-03-16 08:00] VITALS: O2SAT 98
--- NOTE | 2025-03-16 10:57 | CM.DPNOTE ---
DCP Continued: Reviewed EMR and team rounds for pt?s medical status. Per hospitalist, pt cleared to discharge home with family today, 03/16. Per RN, pt requesting a preferential loading pass for [place] [employer] due to COVID+ and incontinence of bowels. [place] ferry [place]. DCP completed Medical Preferential Load Program form online and printed for pt record, provided at bedside. Plan: Anticipating dc home with friend to transport. CM Team will continue to follow for coordination of discharge plans. YANCY Camargo
[2025-03-16] MEDS: LOPERAMIDE 2 MG CAPSULE PO ×2 (11:32→14:59)
[2025-03-16] MEDS: OXYCODONE IR 5 MG TABLET PO (11:32)
--- NOTE | 2025-03-16 11:44 | PM.DS.IH.1 ---
History of Present Illness History of Present Illness Date Patient Seen: 03/16/25 Time Patient Seen: 08:20 Chief complaint: LLQ Abd pain/Covid+ Narrative: Abdominal pain fever or chills and vomiting secondary to acute sigmoid diverticulitis with possible microperforation 03/14: 69-year-old female flown by helicopter from [place] with bilateral lower quadrant pain and tested positive for COVID yesterday. She was brought to the emergency room for evaluation. She has a past history of medical history of diverticulitis. Pain is intense localized in the lower quadrant escalating the through the day worsened by eating or drinking Findings in the emergency department significant for CT scan which shows severe diverticulosis of the sigmoid colon with focal diverticulitis and small areas of free air around the sigmoid. White blood cell count 8.2 chemistries otherwise unremarkable Discharge Providers Provider Date of admission: 03/14/25 15:12 Discharge Date: 03/16/25 Primary care physician: Kimberley Arreaga MD Discharge provider: Mariusz Valderrama MD Summary Hospital Course Discharge Diagnosis: 1. Acute sigmoid diverticulitis with microperforation 2. COVID positive without evidence of pneumonia Hospital Course: The patient was admitted and treated with broad-spectrum antibiotics. General surgery was consulted and recommended antibiotics and advancing diet. Patient was able to advance to a general diet and was interested in discharge home with outpatient follow-up. No other issues arose. Status at Discharge Cognitive/behavioral status at discharge: oriented Functional status at discharge: independent ambulation Overall status at discharge: patient is progressing back to baseline Time Spent with Patient Time spent: Greater than 30 minutes Exam Vital Signs (past 8 hours): - 03/16/25 06:00 03/16/25 07:48 Temperature 97.2 F L 97.9 F Pulse Rate 56 L 56 L Respiratory Rate 18 15 Blood Pressure 116/71 91/57 L Pulse Oximetry 99 97 Oxygen Flow Rate 0 0 Oxygen Delivery Method Room Air Oxygen Flow Rate 0 Narrative Exam Narrative: Female in no apparent disterss, eating breakfast HEENT unremarkable Heart rate and rhythm regular Lungs clear to auscultation Abdomen is nondistended active bowel sounds localized mild LLQ tenderness Extremities without edema, no calf tenderness or swelling She is alert and oriented neuro is nonfocal Objective Imaging Abdomen pelvis CT 03/14/2025: : Radiologist's impression: Acute on chronic left lower quadrant diverticulitis. Scant amount of free air in the left lower quadrant. No abscess. Chest x-ray 03/14/2025: : Radiologist's impression: No acute cardiopulmonary pathology. Labs 03/16/25 05:50 03/16/25 05:50 Labs: Laboratory Results - last 24 hr 03/16/25 05:50 WBC 6.1 RBC 4.04 Hgb 12.8 Hct 37.1 MCV 91.8 MCH 31.7 MCHC 34.5 RDW 13.8 Plt Count 179 Neut % (Auto) 53.3 Lymph % (Auto) 33.5 Elliott % (Auto) 9.9 Eos % (Auto) 2.8 Baso % (Auto) 0.5 Neut # (Auto) 3300 Lymph # (Auto) 2100 Elliott # (Auto) 600 Eos # (Auto) 200 Baso # (Auto) 0 Sodium 139 Potassium 3.9 Chloride 112 H Carbon Dioxide 23 BUN 10 Creatinine 0.65 Estimated GFR > 60 BUN/Creatinine Ratio 15.4 Glucose 107 H Calcium 8.1 L Magnesium 2.0 PFSH Medical History Anxiety Cataract Eyelid abnormality Insomnia Pre-diabetes Sleep apnea Surgical History History of bladder surgery History of tonsillectomy Hx of cholecystectomy (08/07/18) Hx of repair of rotator cuff S/P operative procedure on shoulder S/P JULIA-BSO Status post right knee replacement Family History Father Heart disease Cancer Non-Hodgkin lymphoma Grandmother Heart disease Cancer Grandmother Diabetes mellitus Gallstones Grandfather Diabetes mellitus Social History household members: children Smoking Status: Former smoker alcohol intake: never substance use type: does not use additional social history: House on [address], lives in [place]. Guardian for grandchild. Discharge Plan Discharge Plan Patient Disposition: Home Provider Discharge Comment: low residue diet, followup with PCP 1 week Discharge orders & Medications Prescriptions: New amoxicillin-pot clavulanate 875-125 mg tablet 1 tab PO BID Qty: 20 0RF Continued cholecalciferol (vitamin D3) 50 mcg (2,000 unit) capsule 75 mcg PO DAILY magnesium oxide 500 mg capsule 500 mg PO BEDTIME Excedrin Extra Strength 250-250-65 mg Tablet 2 tab PO DAILY PRN (Reason: Headache) calcium citrate 200 mg (950 mg) Tablet 1,200 mg PO BEDTIME omega-3 fatty acids-vitamin E 1,000 mg Capsule 2,000 cap PO DAILY acetaminophen [Tylenol] 325 mg capsule 650 mg PO QID PRN (Reason: pain) Qty: 60 0RF Follow up/Referrals: Kimberley Arreaga MD [Primary Care Provider, Family Practice] Diet/Activity/Treatments Diet: Regular Visit Report/Discharge Packet Instructions: Diarrhea, DI for Diverticulitis, DI for COVID-19 (Suspected or Confirmed ), How to Care for Someone with COVID-19, COVID-19_ Can I Get It Again Stand Alone Forms: Patient Portal/API, Stroke Signs & Symptoms Discharge Data Primary Care Provider: Kimberley Arreaga Quality VTE Deep Vein Thrombosis/Pulmonary Embolism Present on Admission: No MIPS - Admit I confirm the patient?s Advance Care Plan is present, Code status is documented, Surrogate decision maker is in patient?s record [If Yes, STOP here]: Yes MIPS - Meds 'Current medications' to include all prescriptions, [id number] products, herbals, cannabis/cannabidiol products, and vitamin/mineral/dietary (nutritional) supplements. I have utilized all available resources to obtain, update, or review the patient?s current medications. [If Yes, STOP here]: Yes MIPS - DC The patient has a history of heart transplant or Left Ventricular Assist Device (LVAD). If yes, STOP here.: No The patient has current or prior documentation of left ventricular ejection fraction (LVEF) less than or equal to 40%, or moderate or severely depressed left ventricular systolic function.: No A. The patient was prescribed or already taking an Angiotensin-Converting Enzyme (DARLING) Inhibitor, or Angiotensin Receptor Rui (ARB).: No B. The patient was prescribed or already taking a beta-rui. [If Yes to Both A & B, STOP here]: No Patient not prescribed/taking DARLING or ARB, no reason given.: No Patient not prescribed/taking beta-rui, no reason given.: No IH PROFEE Charge Codes Discharge inpatient/observation: [id number]
--- NOTE | 2025-03-16 16:31 | PC.NURSE ---
Discharge: Pt feels ready to d/c to home. Is having some liquid stool today. Dr. Valderrama made aware and she has had 2 doses of immodium which she says has helped. Still has a little tenderness in the abd but it is much improved since admit. Reviewed d/c packet, covid. Isolation for 1 more day unless symptomatic, then needs to stay in isolation until afebrile and sys are less. Right now mostly has a sore throat. Questions answered. Pt received a priority load pass. Rx was sent to [facility] and they have picked it up. Questions answered. Pt d/c to home via auto with friend.
== END 2025-03-16 16:30 | disposition home or self-care (01) | DRG 391 ==
LOC: ED 12:02 → AC 15:17
PROVIDERS: Pharmacist Pharmacist Clinician (PhC)/ Clinical Pharmacy Specialist; Admitting Provider Internal Medicine; Emergency Provider Emergency Medicine; PCP Family Medicine; Referring Provider Emergency Medicine; Visit Provider Internal Medicine
DX: K57.20 Diverticulitis of large intestine with perforation and abscess without bleeding (principal); U07.1 COVID-19; Z87.891 Personal history of nicotine dependence
CPT/HCPCS: 36415; 71045; 74177; 80048; 80053; 81001; 83690; 83735; 85025; 96361; 96374; 99284; J2543; J3010; Q9967